=== PATIENT | male | born 1925 | race Caucasian/White ===

== ENCOUNTER 2017-06-30 16:43 | Inpatient (IN) | payer OTHER ==
--- NOTE | 2017-06-30 16:51 | PDOC ---
Rapid Medical Evaluation Time Seen by Provider: 06/30/17 16:49 Medical Evaluation: Allergies Allergy/AdvReac Type Severity Reaction Status Date / Time No Known Allergies Allergy Verified 03/04/17 10:29 06/30/17 16:49 The patient presents with a chief complaint of: stomatitis and tongue sores. for three days I have performed a brief in-person evaluation of this patient; Pertinent physical exam findings: ambulatory, in no respiratory distress I have ordered the following: The patient will proceed to the fast track for further evaluation.
--- NOTE | 2017-06-30 17:06 | PDOC ---
History of Present Illness - General Chief Complaint: Oral Ulcers Stated Complaint: SORES Time Seen by Provider: 06/30/17 16:49 Exam Limitations: Language Barrier (Granddaughter is at bedside. Refuses Zhihu ) - History of Present Illness Initial Comments: 06/30/17 17:51 Patient is an 89-year-old male with past medical history of leukemia, hypothyroidism, who presents to emergency department today for oral ulcers. His granddaughter is translating. Patient states that he has had these ulcers for the past 2 days. He states that they're very painful he has been unable to or drink anything. He states he had ulcers like these a couple months ago and was treated with a short course of steroids, however his oncologist Dr. Turcios did not want to give steroids for second time. Spoke with patient's daughter via phone who states that given this is his second round of oral ulcers and they appear different than they did 3 months ago, Dr. Turcios would like the patient to be admitted. She also states that he has had some abnormal blood counts as well as fevers over the past week. Currently denies any complaints other than mouth pain and difficulty swallowing. Past History - Travel Traveled outside of the country in the last 30 days: No Close contact w/someone who was outside of country & ill: No - Past Medical History Allergies/Adverse Reactions: Allergies Allergy/AdvReac Type Severity Reaction Status Date / Time No Known Allergies Allergy Verified 03/04/17 10:29 Home Medications: Ambulatory Orders Levothyroxine [Synthroid -] 50 mcg PO DAILY 03/04/17 Aspirin [Adult Aspirin Regimen] 81 mg PO DAILY 07/01/17 Diflucan 07/01/17 Anemia: Yes COPD: No Diabetes: Yes Disorders: Yes (BPH) Thyroid Disease: Yes (Hypothyroid) - Immunization History Immunization Up to Date: Yes - Suicide/Smoking/Psychosocial Hx Smoking History: Never smoked Have you smoked in the past 12 months: No Hx Alcohol Use: No Drug/Substance Use Hx: No Substance Use Type: None Review of Systems - Review of Systems Able to Perform ROS?: Yes Comments:: 06/30/17 17:06 CONSTITUTIONAL: Present: fevers, unable to eat d/t pain from oral ulcers. Absent: fever, chills , diaphoresis, generalized weakness, malaise, loss of appetite HEENT: Present: oral ulcers, difficulty/painful swallowing. Absent: rhinorrhea, nasal congestion, throat pain, throat swelling, difficulty swallowing, mouth swelling , ear pain, eye pain, visual Changes CARDIOVASCULAR: Absent: chest pain, loss of consciousness, palpitations, irregular heart rate, peripheral edema RESPIRATORY: Absent: cough, shortness of breath, dyspnea with exertion, orthopnea, wheezing, stridor, hemoptysis GASTROINTESTINAL: Absent: abdominal pain, abdominal distension, nausea, vomiting, diarrhea, constipation, melena, hematochezia GENITOURINARY: Absent: dysuria, frequency, urgency, hesitancy, hematuria, flank pain, genital pain MUSCULOSKELETAL: Absent: myalgia, arthralgia, joint swelling SKIN: Absent: rash, itching, pallor HEMATOLOGIC/IMMUNOLOGIC: Absent: easy bleeding, easy bruising, lymphadenopathy, frequent infections ENDOCRINE: Absent: unexplained weight gain, unexplained weight loss, heat intolerance, cold intolerance NEUROLOGIC: Absent: headache, focal weakness or paresthesias, dizziness, unsteady gait, seizure, mental status changes, bladder or bowel incontinence PSYCHIATRIC: Absent: anxiety, depression, suicidal or homicidal ideation, hallucinations. Is the patient limited Bel[place]ian proficient: No *Physical Exam - Vital Signs Last Vital Signs Temp Pulse Resp BP Pulse Ox 98.2 F 89 20 132/77 99 06/30/17 16:49 06/30/17 16:49 06/30/17 16:49 06/30/17 16:49 06/30/17 16:49 - Physical Exam Comments: 06/30/17 17:06 GENERAL: Well developed, well nourished. Awake and alert. No acute distress. HEENT: Tongue with 3 oral ulcers to dorsal tongue. 2 measure approximately the size of a dime. One in center tongue measuring 0.5cm approximately. Tongue with overall green/yellow apperance. Normocephalic, atraumatic. PERRLA, EOMI. No conjunctival pallor. Sclera are non-icteric. Moist mucous membranes. Oropharynx is clear with no lesions noted. NECK: Supple. Full ROM. No JVD. Carotid pulses 2+ and symmetric, without bruits. No thyromegaly. No lymphadenopathy. CARDIOVASCULAR: Regular rate and rhythm. No murmurs, rubs, or gallops. Distal pulses are 2+ and symmetric. PULMONARY: No evidence of respiratory distress. Lungs clear to auscultation bilaterally. No wheezing, rales or rhonchi. ABDOMINAL: Soft. Non-tender. Non-distended. No rebound or guarding. No organomegaly. Normoactive bowel sounds. MUSCULOSKELETAL Normal range of motion at all joints. No bony deformities or tenderness. No CVA tenderness. EXTREMITIES: No cyanosis. No clubbing. No edema. No calf tenderness. SKIN: Warm and dry. Normal capillary refill. No rashes. No jaundice. NEUROLOGICAL: Alert, awake, appropriate. Cranial nerves 2-12 intact. No deficits to light touch and temperature in face, upper extremities and lower extremities. No motor deficits in the in face, upper extremities and lower extremities. Normoreflexic in the upper and lower extremities. Normal speech. Toes are down- going bilaterally. Gait is normal without ataxia. PSYCHIATRIC: Cooperative. Good eye contact. Appropriate mood and affect. ED Treatment Course - LABORATORY CBC & Chemistry Diagram: 07/01/17 06:50 07/01/17 06:50 Medical Decision Making - Medical Decision Making 06/30/17 17:57 Patient is an 89-year-old male past medical history leukemia, hypothyroidism, who presents with 2 days of oral ulcers. After speaking with patient's daughter. Dr. Turcios would like to have the patient admitted for further evaluation of his ulcers as well as abnormal outpatient blood counts. Patient was currently triaged to fast track. We will endorse the patient to the main emergency department for further workup and admission. Patient is currently stable for transfer. Sign out was given 2 HOUSE REGISTRY RN Eladia Urrutia and Lluvia Umanzor , charge nurse. *DC/Admit/Observation/Transfer Diagnosis at time of Disposition: Oral ulcer, At risk for dehydration due to poor fluid intake - Referrals - Patient Instructions - Post Discharge Activity
--- NOTE | 2017-06-30 19:53 | PDOC ---
*Physical Exam - Vital Signs Last Vital Signs Temp Pulse Resp BP Pulse Ox 98.2 F 89 20 132/77 99 06/30/17 16:49 06/30/17 16:49 06/30/17 16:49 06/30/17 16:49 06/30/17 16:49 ED Treatment Course - LABORATORY CBC & Chemistry Diagram: 07/02/17 06:10 07/02/17 06:10 Medical Decision Making - Medical Decision Making 06/30/17 19:52 agree with care from DAVION Zee *DC/Admit/Observation/Transfer Diagnosis at time of Disposition: Oral ulcer, At risk for dehydration due to poor fluid intake - Referrals - Patient Instructions - Post Discharge Activity
[2017-06-30] MEDS ORDERED: SODIUM CHLORIDE 0.9% 500 ML INFUS.BAG IV ONE ×2 (19:54→23:45)
[2017-06-30 20:59] LABS: HEMATOCRIT 33.3 % (35.4-49); HEMOGLOBIN 11.1 GM/dL (11.7-16.9); MCH 32.4 pg (25.7-33.7); MCHC 33.4 g/dl (32.0-35.9); MEAN PLT VOLUME 8.8 fl (7.5-11.1); PLATELET COUNT 138 K/MM3 (134-434); RBC 3.43 M/mm3 (4.00-5.60); RDW 14.2 % (11.9-15.9); WHITE BLOOD COUNT 11.3 K/mm3 (4.0-10.0)
--- NOTE | 2017-06-30 21:16 | PDOC ---
*Physical Exam - Vital Signs Last Vital Signs Temp Pulse Resp BP Pulse Ox 98.2 F 89 20 132/77 99 06/30/17 16:49 06/30/17 16:49 06/30/17 16:49 06/30/17 16:49 06/30/17 16:49 ED Treatment Course - LABORATORY CBC & Chemistry Diagram: 06/30/17 20:33 06/30/17 20:33 - RADIOLOGY Radiology Studies Ordered: Category Date Time Status CHEST PA & LAT [RAD] Stat Radiology 06/30/17 19:54 Ordered - Medications Given in the ED: ED Medications Discontinued Medications Generic Name Dose Route Start Last Admin Trade Name Freq PRN Reason Stop Dose Admin Sodium Chloride 1,000 ml 06/30/17 19:54 06/30/17 20:50 Normal Saline - IV 06/30/17 19:55 1,000 ml ONCE ONE Administration Medical Decision Making - Medical Decision Making 06/30/17 21:00 Patient was seen in the fast track area and transfered to the main ED for further care. History was obtained from the daughter. Patient is an 89-year-old male with past medical history of leukemia, hypothyroidism, who presents to emergency department today for oral ulcers. States he was sent for admission by Dr. 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 Daughter states that he has had these ulcers for the past 2 days which are painful he has been unable to or drink anything assoc/w fever. These ulcers like lesion he has had for a couple months intermittently for which he has been on steriods but has been off steriods now for 1 month. He had a bx of these lesion in the past but while on steroids but was inconclusive. Dr. Turcios did not want to give steroids for second time but was given Nystatin and has sent him in for admission. PMD: Dr. Brooks ALL: NKDA GENERAL/CONSTITUTIONAL: [No fever or chills. No weakness. No weight change.] HEAD, EYES, EARS, NOSE AND THROAT: [No change in vision. No ear pain or discharge. No sore throat, (+) oral lesion .] CARDIOVASCULAR: [No chest pain or shortness of breath.] RESPIRATORY: [No cough, wheezing, or hemoptysis.] GASTROINTESTINAL: [No nausea, vomiting, diarrhea or constipation. No rectal bleeding.] GENITOURINARY: [No dysuria, frequency, or change in urination.] MUSCULOSKELETAL: [No joint or muscle swelling or pain. No neck or back pain.] SKIN AND BREASTS: [No rash or easy bruising.] NEUROLOGIC: [No headache, vertigo, loss of consciousness, or loss of sensation.] PSYCHIATRIC: [No depression or anxiety.] ENDOCRINE: [No increased thirst. No abnormal weight change.] HEMATOLOGIC/LYMPHATIC: [No anemia, easy bleeding, or history of blood clots.] ALLERGIC/IMMUNOLOGIC: [No hives or skin allergy. No latex allergy.] GENERAL: [The patient is awake, alert, and fully oriented, in no acute distress. ] HEAD: [Normal with no signs of trauma.] EYES: [Pupils equal, round and reactive to light, extraocular movements intact, sclera anicteric, conjunctiva clear.] ENT: [Ears normal, nares patent, oropharynx (+) ulcer on the tongue, yellow coating on the tongue, no exudates. Moist mucous membranes.] NECK: [Normal range of motion, supple without lymphadenopathy, JVD, or masses.] LUNGS: [Breath sounds equal, clear to auscultation bilaterally. No wheezes, and no crackles.] HEART: [Regular rate and rhythm, normal S1 and S2 without murmur, rub.] ABDOMEN: [Soft, nontender, normoactive bowel sounds. No guarding, no rebound. No masses.] EXTREMITIES: [Normal range of motion, no edema. No clubbing or cyanosis. No cords, erythema, or tenderness.] NEUROLOGICAL: [Cranial nerves II through XII grossly intact. Normal speech, normal gait.] PSYCH: [Normal mood, normal affect.] SKIN: (+) Warmth, Dry, normal turgor, no rashes or lesions noted, (+) edema lower ext] EKG SR rate 78, NAD, (-) ST-T wave changes A/P: Patient was seen in the fast track area and transfered to the main ED for further care. History was obtained from the daughter. Patient is an 89-year- old male with past medical history of leukemia, hypothyroidism, who presents to emergency department today for oral ulcers. called by Dr. Cole recommend admission to Dr. Richards service with hospitalist doing admission. will get sepsis labs, given fluids. 06/30/17 22:16 *DC/Admit/Observation/Transfer Diagnosis at time of Disposition: Oral ulcer, At risk for dehydration due to poor fluid intake - Discharge Dispostion Admit: Yes - Referrals Referrals: Byron Brooks MD [Primary Care Provider] - - Patient Instructions - Post Discharge Activity
[2017-06-30 22:17] LABS: MACROCYTOSIS 1+; PLATELET ESTIMATE ADEQUATE
[2017-06-30 22:55] LABS: ALBUMIN 3.5 g/dl (3.4-5.0); ALK PHOS 60 U/L (45-117); ANION GAP 10 (8-16); BILIRUBIN,TOTAL 0.8 mg/dL (0.2-1.0); BLOOD UREA NITROGEN 11 mg/dL (7-18); CALCIUM 7.7 mg/dL (8.5-10.1); CHLORIDE 107 mmol/L (98-107); CO2 23 mmol/L (21-32); CREATININE 0.9 mg/dL (0.7-1.3); GLUCOSE,RANDOM 101 mg/dL (74-106); POTASSIUM 3.7 mmol/L (3.5-5.1); SGOT/AST 19 U/L (15-37); SGPT/ALT 14 U/L (12-78); SODIUM 140 mmol/L (136-145); TOT PROT 7.4 g/dl (6.4-8.2)
[2017-07-01 01:04] LABS: URINE APPEARANCE SLCLOUDY; URINE BILIRUBIN NEGATIVE (NEGATIVE); URINE BLOOD NEGATIVE (NEGATIVE); URINE COLOR AMBER; URINE GLUCOSE (UA) NEGATIVE (NEGATIVE); URINE KETONE NEGATIVE (NEGATIVE); URINE LEUK ESTERASE NEGATIVE (NEGATIVE); URINE NITRITE NEGATIVE (NEGATIVE); URINE PROTEIN NEGATIVE (NEGATIVE); URINE UROBILINOGEN 4.0 E.U/dl mg/dL (0.2-1.0)
[2017-07-01 01:44] VITALS: BMI 25.5
--- NOTE | 2017-07-01 01:57 | HP ---
CHIEF COMPLAINT: Oral ulcers PCP: Dr. Byron Brooks HISTORY OF PRESENT ILLNESS: The patient is an 89 yo m w/ PMH myelodysplastic syndrome, DM and Hypothyroidism who was sent to the ED by Dr. Turcios for further evaluation of oral ulcers. The patient is ukranian speaking and the history was obtained by his granddaughter at bedside and his daughter by phone. Patient declined cyracom. The patient has a 2 months history of recurrent, painful oral ulcers. The ulcers are so painful that he was unable to eat or drink anything. In the past these ulcers improved after treatment with steroids. They were biopsied in the past, but resulted in nonspecific results. Per the patient's daughter, Dr. 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 Dr Turcios wishes for ENT to be consulted for possible biopsy in the AM. Patient also endorses fevers over the past 2 days correlating with the ulcers. Patient endorses odynophagia. Patient denies CP, SOB, chills, abdominal pain, diarrhea, constipation. ER course was notable for: (1) WBC 11.3, monocytes 40, myelocytes 11, metamyelocytes 3 (2) (3) Recent Travel: none PAST MEDICAL HISTORY: Anemia Diabetes BPH Hypothyroid PAST SURGICAL HISTORY: none Social History: Smoking: denies Alcohol: denies Drugs: denies Family History: non-contributory Allergies No Known Allergies Allergy (Verified 03/04/17 10:29) HOME MEDICATIONS: Home Medications Medication Instructions Recorded Levothyroxine [Synthroid -] 50 mcg PO DAILY 03/04/17 Aspirin [Adult Aspirin Regimen] 81 mg PO DAILY 07/01/17 Diflucan 07/01/17 REVIEW OF SYSTEMS CONSTITUTIONAL: Absent: chills, diaphoresis, generalized weakness, malaise, loss of appetite, weight change HEENT: Absent: rhinorrhea, nasal congestion, throat pain, throat swelling, difficulty swallowing, mouth swelling, ear pain, eye pain, visual changes CARDIOVASCULAR: Absent: chest pain, syncope, palpitations, irregular heart rate, lightheadedness , peripheral edema RESPIRATORY: Absent: cough, shortness of breath, dyspnea with exertion, orthopnea, wheezing, stridor, hemoptysis GASTROINTESTINAL: Absent: abdominal pain, abdominal distension, nausea, vomiting, diarrhea, constipation, melena, hematochezia GENITOURINARY: Absent: dysuria, frequency, urgency, hesitancy, hematuria, flank pain, genital pain MUSCULOSKELETAL: Absent: myalgia, arthralgia, joint swelling, back pain, neck pain SKIN: Absent: rash, itching, pallor HEMATOLOGIC/IMMUNOLOGIC: Absent: easy bleeding, easy bruising, lymphadenopathy, frequent infections ENDOCRINE: Absent: unexplained weight gain, unexplained weight loss, heat intolerance, cold intolerance NEUROLOGIC: Absent: headache, focal weakness or paresthesias, dizziness, unsteady gait, seizure, mental status changes, bladder or bowel incontinence PSYCHIATRIC: Absent: anxiety, depression, suicidal or homicidal ideation, hallucinations. PHYSICAL EXAMINATION Vital Signs - 24 hr 06/30/17 06/30/17 07/01/17 16:49 21:54 01:38 Temperature 98.2 F 99.0 F 97.5 F L Pulse Rate 89 82 Respiratory 20 20 Rate Blood Pressure 132/77 109/56 O2 Sat by Pulse 99 Oximetry (%) 07/01/17 01:49 Temperature Pulse Rate Respiratory Rate Blood Pressure O2 Sat by Pulse 96 Oximetry (%) GENERAL: Awake, alert, and fully oriented, in no acute distress. HEAD: Normal with no signs of trauma. EYES: Pupils equal, round and reactive to light, extraocular movements intact, sclera anicteric, conjunctiva clear. No lid lag. EARS, NOSE, THROAT: Ears normal, nares patent, oropharynx clear without exudates. Moist mucous membranes. There are 3 ulcers on the patient's tongue with a surrounding green discoloration. The discoloration scrapes off of the tongue. The ulcers themselves are tender to palpation. NECK: Normal range of motion, supple without lymphadenopathy, JVD, or masses. LUNGS: Breath sounds equal, clear to auscultation bilaterally. No wheezes, and no crackles. No accessory muscle use. HEART: Regular rate and rhythm, normal S1 and S2 without murmur, rub or gallop. ABDOMEN: Soft, nontender, not distended, normoactive bowel sounds, no guarding, no rebound, no masses. No hepatomegaly or splenomegaly. LOWER EXTREMITIES: 2+ pulses, warm, well-perfused. No calf tenderness. No peripheral edema. NEUROLOGICAL: Cranial nerves II-X intact. Normal speech. Normal gait. PSYCHIATRIC: Cooperative. Good eye contact. Appropriate mood and affect. SKIN: Warm, dry, normal turgor, no rashes or lesions noted, normal capillary refill. Laboratory Results - last 24 hr 06/30/17 06/30/17 06/30/17 20:33 20:33 20:33 WBC 11.3 H D RBC 3.43 L Hgb 11.1 L D Hct 33.3 L MCV 97.0 H MCH 32.4 MCHC 33.4 RDW 14.2 Plt Count 138 MPV 8.8 Total Counted 100 Neutrophils % No Result Required. Neutrophils % (Manual) 14.0 L D Band Neutrophils % 7.0 Lymphocytes % No Result Required. Lymphocytes % (Manual) 20.0 D Monocytes % (Manual) 40 H* Eosinophils % (Manual) 2.0 Basophils % (Manual) 1.0 Myelocytes % (Man) 11 H D Metamyelocytes 3 H D Differential Comment Man diff performed Platelet Estimate Adequate Platelet Comment Polychromasia 1+ Macrocytosis 1+ Sodium Cancelled Potassium Cancelled Chloride Cancelled Carbon Dioxide Cancelled Anion Gap Cancelled BUN Cancelled Creatinine Cancelled Creat Clearance w eGFR Cancelled Random Glucose Cancelled Lactic Acid 1.0 Calcium Cancelled Total Bilirubin Cancelled AST Cancelled ALT Cancelled Alkaline Phosphatase Cancelled Total Protein Cancelled Albumin Cancelled Urine Color Urine Appearance Urine pH Ur Specific [place] Urine Protein Urine Glucose (UA) Urine Ketones Urine Blood Urine Nitrite Urine Bilirubin Urine Urobilinogen Ur Leukocyte Esterase 06/30/17 07/01/17 21:59 00:50 WBC RBC Hgb Hct MCV MCH MCHC RDW Plt Count MPV Total Counted Neutrophils % Neutrophils % (Manual) Band Neutrophils % Lymphocytes % Lymphocytes % (Manual) Monocytes % (Manual) Eosinophils % (Manual) Basophils % (Manual) Myelocytes % (Man) Metamyelocytes Differential Comment Platelet Estimate Platelet Comment Polychromasia Macrocytosis Sodium 140 Potassium 3.7 Chloride 107 Carbon Dioxide 23 Anion Gap 10 BUN 11 Creatinine 0.9 Creat Clearance w eGFR > 60 Random Glucose 101 D Lactic Acid Calcium 7.7 L Total Bilirubin 0.8 AST 19 ALT 14 D Alkaline Phosphatase 60 Total Protein 7.4 Albumin 3.5 Urine Color Renetta Urine Appearance Slcloudy Urine pH 5.0 Ur Specific [place] 1.021 Urine Protein Negative Urine Glucose (UA) Negative Urine Ketones Negative Urine Blood Negative Urine Nitrite Negative Urine Bilirubin Negative Urine Urobilinogen 4.0 e.u/dl Ur Leukocyte Esterase Negative ASSESSMENT/PLAN: The patient is an 89 yo m w/ PMH of Hypothyroidism, myelodysplastic syndrome being admitted for further workup of oral ulcers #Recurrent oral ulcers -ENT consult for possible biposy -Heme/onc consult -NPO -rpt AM labs -fluconazole for possible thrush/ esophageal candidiasis #Diabetes -BGM ACHS -ISS ACHS #Hypothyroid -c/w current medication #FEN -no fluid indicated -lytes WNL -NPO #Prophylaxsis -SCDs #dispo -admit to med surg Visit type - Emergency Visit Emergency Visit: Yes ED Registration Date: 06/30/17 Care time: The patient presented to the Emergency Department on the above date and was hospitalized for further evaluation of their emergent condition. - New Patient This patient is new to me today: Yes Date on this admission: 07/01/17 - Critical Care Critical Care patient: No Hospitalist Screening - Colonoscopy Questionnaire Colonoscopy Questionnaire: Colonoscopy Questionnaire - Patient: 50 - 75 years old and never had a screening colonoscopy: Unknown History of colon or rectal polyps, or CA: Unknown History of IBD, Crohn's disease or UC: Unknown History of abdominal radiation therapy as a child: Unknown - Relative: 1 with colon or rectal CA, or polyps at age 60 or younger: Unknown Colon or rectal CA diagnosed at age 45 or younger: Unknown Multiple relatives with colon or rectal CA: Unknown - Outcome: Screening Result: Negative Screen
--- NOTE | 2017-07-01 03:23 | PN ---
Teaching Attending Note Name of Resident: Silas Lomeli ATTENDING PHYSICIAN STATEMENT I saw and evaluated the patient. Chart, data, imaging reviewed. I reviewed the resident's note and discussed the case with the resident. I agree with the resident's findings and plan as documented. I communicated with the patient in [place] which he and I speak fluently. SUBJECTIVE: 89 yo m w/ PMH myelodysplastic syndrome, DM and Hypothyroidism who sent to hospital by Dr. Turcios for further evaluation of recurrent oral ulcers. Patient c /o dysphagia and tongue pain and cannot swallow food properly. Was given nystatin swish and swallow with minimal improvement. 2 month history of painful oral ulcers. Previously treated with oral steroids. They were biopsied in the past, but resulted in nonspecific results. Dr. Turcios noted that patient's most recent blood work showed some "atypical cells." and there was some concern for development of leukemia. OBJECTIVE: Last Vital Signs Temp Pulse Resp BP Pulse Ox 97.5 F L 82 20 109/56 96 07/01/17 01:38 07/01/17 01:38 07/01/17 01:38 07/01/17 01:38 07/01/17 01:49 General- NAD, AAox3 HEENT- 3 ulcers on tongue, yellowish plaque on tongue which can be partially scraped off, no pharyngeal injection neck -supple, no neck masses cv -s1+S2+ systolic murmur chest - cta b/l abdomen- soft, BS, no hepatosplenomegally appreciated skin- no rashes appreciated Laboratory Results - last 24 hr 06/30/17 06/30/17 06/30/17 20:33 20:33 20:33 WBC 11.3 H D RBC 3.43 L Hgb 11.1 L D Hct 33.3 L MCV 97.0 H MCH 32.4 MCHC 33.4 RDW 14.2 Plt Count 138 MPV 8.8 Total Counted 100 Neutrophils % No Result Required. Neutrophils % (Manual) 14.0 L D Band Neutrophils % 7.0 Lymphocytes % No Result Required. Lymphocytes % (Manual) 20.0 D Monocytes % (Manual) 40 H* Eosinophils % (Manual) 2.0 Basophils % (Manual) 1.0 Myelocytes % (Man) 11 H D Metamyelocytes 3 H D Differential Comment Man diff performed Platelet Estimate Adequate Platelet Comment Polychromasia 1+ Macrocytosis 1+ Sodium Cancelled Potassium Cancelled Chloride Cancelled Carbon Dioxide Cancelled Anion Gap Cancelled BUN Cancelled Creatinine Cancelled Creat Clearance w eGFR Cancelled Random Glucose Cancelled Lactic Acid 1.0 Calcium Cancelled Total Bilirubin Cancelled AST Cancelled ALT Cancelled Alkaline Phosphatase Cancelled Total Protein Cancelled Albumin Cancelled Urine Color Urine Appearance Urine pH Ur Specific [place] Urine Protein Urine Glucose (UA) Urine Ketones Urine Blood Urine Nitrite Urine Bilirubin Urine Urobilinogen Ur Leukocyte Esterase 06/30/17 07/01/17 21:59 00:50 WBC RBC Hgb Hct MCV MCH MCHC RDW Plt Count MPV Total Counted Neutrophils % Neutrophils % (Manual) Band Neutrophils % Lymphocytes % Lymphocytes % (Manual) Monocytes % (Manual) Eosinophils % (Manual) Basophils % (Manual) Myelocytes % (Man) Metamyelocytes Differential Comment Platelet Estimate Platelet Comment Polychromasia Macrocytosis Sodium 140 Potassium 3.7 Chloride 107 Carbon Dioxide 23 Anion Gap 10 BUN 11 Creatinine 0.9 Creat Clearance w eGFR > 60 Random Glucose 101 D Lactic Acid Calcium 7.7 L Total Bilirubin 0.8 AST 19 ALT 14 D Alkaline Phosphatase 60 Total Protein 7.4 Albumin 3.5 Urine Color Renetta Urine Appearance Slcloudy Urine pH 5.0 Ur Specific [place] 1.021 Urine Protein Negative Urine Glucose (UA) Negative Urine Ketones Negative Urine Blood Negative Urine Nitrite Negative Urine Bilirubin Negative Urine Urobilinogen 4.0 e.u/dl Ur Leukocyte Esterase Negative CXR - clear lung parenchyma ASSESSMENT AND PLAN: #Recurrent tongue ulcers associated with painful tongue and dysphagia. Possible esophageal/esophageal thrush. -admit to observation -ENT consult for possible tongue ulcer biopsy -pain management -fluconazole 100mg po daily for possible thrush -EKG to check qtc -NPO except for PO meds for now #Atypical cells on blood smear -blood smear -heme/onc consult -DVT ppx- heparin sc
[2017-07-01] MEDS: LEVOTHYROXINE NA 50 MCG TABLET (FP) PO SCH (06:06)
[2017-07-01] MEDS: INSULIN SLIDING SCALE (NOVOLOG) 1 VIAL SQ SCH ×4 (06:19→21:09)
[2017-07-01 07:22] LABS: HEMOGLOBIN 10.2 GM/dL (11.7-16.9); MCH 32.7 pg (25.7-33.7); MCHC 34.1 g/dl (32.0-35.9); MEAN PLT VOLUME 8.4 fl (7.5-11.1); PLATELET COUNT 117 K/MM3 (134-434); RBC 3.12 M/mm3 (4.00-5.60); RDW 13.5 % (11.9-15.9); WHITE BLOOD COUNT 9.5 K/mm3 (4.0-10.0)
[2017-07-01 07:35] LABS: INR 1.22 (0.82-1.09); PROTHROMBIN TIME (PATIENT) 13.8 SEC (9.98-11.88)
[2017-07-01 07:38] LABS: ACTIVATED PTT 31.3 SECONDS (26.9-34.4)
[2017-07-01 07:52] LABS: ALBUMIN 3.2 g/dl (3.4-5.0); ANION GAP 9 (8-16); BLOOD UREA NITROGEN 10 mg/dL (7-18); CALCIUM 7.5 mg/dL (8.5-10.1); CHLORIDE 108 mmol/L (98-107); CO2 22 mmol/L (21-32); GLUCOSE,RANDOM 88 mg/dL (74-106); POTASSIUM 3.7 mmol/L (3.5-5.1); SODIUM 139 mmol/L (136-145)
[2017-07-01 07:55] LABS: ALK PHOS 53 U/L (45-117); BILIRUBIN,TOTAL 1.1 mg/dL (0.2-1.0); CREATININE 0.8 mg/dL (0.7-1.3); PHOSPHOROUS 2.9 mg/dL (2.5-4.9); SGOT/AST 18 U/L (15-37); SGPT/ALT 13 U/L (12-78); TOT PROT 6.9 g/dl (6.4-8.2)
--- NOTE | 2017-07-01 08:47 | EKG ---
Test Reason : Blood Pressure : / mmHG Vent. Rate : 078 BPM Atrial Rate : 078 BPM P-R Int : 188 ms QRS Dur : 074 ms QT Int : 374 ms P-R-T Axes : 062 -03 016 degrees QTc Int : 426 ms NORMAL SINUS RHYTHM NORMAL ECG NO PREVIOUS ECGS AVAILABLE Confirmed by NIYA GIL, GEETA ([id number]) on 07/01/2017 8:46:53 AM Referred By: Confirmed By:GEETA NÚÑEZ MD
[2017-07-01 09:37] LABS: PLATELET ESTIMATE DECREASED
[2017-07-01] MEDS: FLUCONAZOLE 100 MG TABLET (UD) PO SCH (09:57)
--- NOTE | 2017-07-01 14:19 | PN ---
Progress Note, Physician Chief Complaint: patient sleeping in bed admitted for oral ulcers currently NPO on iv fluids - Current Medication List Current Medications: Active Medications Fluconazole (Diflucan -) 100 mg PO DAILY [facility] Last Admin: 07/01/17 09:57 Dose: 100 mg Insulin Aspart (Novolog Vial Sliding Scale -) 1 vial SQ ACHS [facility] PRN Reason: Protocol Last Admin: 07/01/17 11:08 Dose: Not Given Levothyroxine Sodium (Synthroid -) 50 mcg PO DAILY@0700 [facility] Last Admin: 07/01/17 06:06 Dose: 50 mcg - Objective Vital Signs: Vital Signs Temperature 98.8 F 07/01/17 14:07 Pulse Rate 75 07/01/17 14:07 Respiratory Rate 20 07/01/17 14:07 Blood Pressure 104/55 07/01/17 14:07 O2 Sat by Pulse Oximetry (%) 96 07/01/17 09:00 Constitutional: Yes: Calm HENT: Yes: Other (oral ulcers noted circular with light discoloation around them near the tip of the tongue) Cardiovascular: Yes: Regular Rate and Rhythm, S1, S2 Respiratory: Yes: CTA Bilaterally Gastrointestinal: Yes: Normal Bowel Sounds, Soft Edema: No Neurological: Yes: Alert, Oriented Labs: CBC, BMP 07/01/17 06:50 07/01/17 06:50 INR, PTT INR 1.22 (0.82-1.09) H 07/01/17 06:50 Problem List - Problems (1) Oral ulcer Assessment/Plan: ent,id,heme eval dilfucan Code(s): K12.1 - OTHER FORMS OF STOMATITIS (2) At risk for dehydration due to poor fluid intake Assessment/Plan: ivf Code(s): Z91.89 - OTH PERSONAL RISK FACTORS, NOT ELSEWHERE CLASSIFIED (3) Hypothyroid Assessment/Plan: on synthroid check tsh Code(s): E03.9 - HYPOTHYROIDISM, UNSPECIFIED
--- NOTE | 2017-07-01 14:46 | CONSULT ---
Consult Consult Specialty:: Oncology Referred by:: Dr. Fuentes Reason for Consultation:: Abnormal hemogram. Oral ulcerations - History of Present Illness Chief Complaint: Inability to eat secondary to oral ulcerations - History Source History Provided By: Family Member Limitations to Obtaining History: Language Barrier - Past Medical History Gastrointestinal: Yes: Other (Recent diagnosis of hepatitis B surface antigen and hepatitis B core antibody positive ) Heme/Onc: Yes: Thrombocytopenia, Other (Recent Bone marrow compatible with Myelodysplasia) Infectious Disease: Yes: Other (Bep B suface Ag and Hep B surface Ab positive ) ENT: Yes: Other (oral ulcerations ) - Alcohol/Substance Use Hx Alcohol Use: No - Smoking History Smoking history: Never smoked Have you smoked in the past 12 months: No Home Medications - Allergies Allergies/Adverse Reactions: Allergies Allergy/AdvReac Type Severity Reaction Status Date / Time No Known Allergies Allergy Verified 03/04/17 10:29 - Home Medications Home Medications: Ambulatory Orders Levothyroxine [Synthroid -] 50 mcg PO DAILY 03/04/17 Aspirin [Adult Aspirin Regimen] 81 mg PO DAILY 07/01/17 Diflucan 07/01/17 Review of Systems - Review of Systems Constitutional: reports: Loss of Appetite, Malaise, Weakness Eyes: denies: Blurred Vision HENT: reports: Difficult Swallowing, Throat Pain. denies: Epistaxis, Nasal Congestion Neck: denies: Lumps, Stiffness, Tenderness Cardiovascular: denies: Chest Pain, Shortness of Breath Respiratory: denies: Hemoptysis, SOB on Exertion Gastrointestinal: denies: Abdominal Pain, Bloating, Constipation, Diarrhea, Melena, Nausea, Vomiting Genitourinary: denies: Burning, Dysuria, Flank Pain, Frequency, Hematuria Endocrine: reports: Other (thyroid disease) Psychiatric: reports: No Symptoms Physical Exam Vital Signs: Vital Signs Temperature 98.8 F 07/01/17 14:07 Pulse Rate 75 07/01/17 14:07 Respiratory Rate 20 07/01/17 14:07 Blood Pressure 104/55 07/01/17 14:07 O2 Sat by Pulse Oximetry (%) 96 07/01/17 09:00 Constitutional: Yes: Moderate Distress Eyes: Yes: PERRL. No: Ptosis, Sclera Icterus HENT: Yes: Normocephalic, Thrush, Other (ulcerations; coated tongue). No: Epistaxis Neck: No: Lymphadenopathy, Thyromegaly Cardiovascular: Yes: Regular Rate and Rhythm Respiratory: Yes: Regular, CTA Bilaterally Renal/: No: CVA Tenderness - Left, CVA Tenderness - Right Musculoskeletal: Yes: Back Pain, Muscle Pain Extremities: No: Calf Tenderness, Cyanosis Edema: No Integumentary: No: Erythema, Jaundice, Laceration Neurological: Yes: WNL Psychiatric: Yes: WNL Labs: CBC, BMP 07/01/17 06:50 07/01/17 06:50 Problem List - Problems (1) Oral ulcer Assessment/Plan: Patient apparently seen previously by ENT , Dr. Chester and placed on steroids . Daughter states this was related to oral ulcerations. The steroids improved the ulcers, and patient underwent biopsy which was non diagnostic. Patient seen in office on 06/29 . He was placed on diflucan, nystatin suspension and magic He had inability to eat. His tongue was coated and he had 2 discrete ulcerations. Advised ER since patient was unable to take adequate p.o. Code(s): K12.1 - OTHER FORMS OF STOMATITIS (2) Myelodysplasia (myelodysplastic syndrome) Assessment/Plan: Patient seen about 6 weeks ago for abnormal hemogram with left shift and increased monocytes. Vitamin B-12 level was low and patient given B-12 x 4 weeks. With no improvement, a Bone marrow aspirate and biopsy was performed which revealed MYELODYSPLASIA. There were some blasts in the marrow , but no evidence of leukemic transformation, and no therapy was instituted. Flow cytometry will be obtained . Code(s): D46.9 - MYELODYSPLASTIC SYNDROME, UNSPECIFIED (3) Hepatitis B Assessment/Plan: Bloods drawn on 06/29 in office revealed HIV- negative and hepatitis B surface antigen positive and Hepatitis B core antibody positive. Hepatitis C was negative. GI to follow up. Code(s): B19.10 - UNSPECIFIED VIRAL HEPATITIS B WITHOUT HEPATIC COMA
[2017-07-01] MEDS: SODIUM CHLORIDE 1,000 ML IV SCH (15:04)
--- NOTE | 2017-07-01 15:54 | CON.ID ---
Consult Consult Specialty:: infectious disease Referred by:: dr jhaveri Reason for Consultation:: tongue lesions - History of Present Illness Chief Complaint: painful tongue lesions History of Present Illness: history from [facility] (partial), dr soliz and chart 4 day history of painful mouth sores second episode, last time treated with steroids, biopsy nondiagnostic now with pain on eating no fevers no lesions elsewhere workup per Dr Soliz HIV negative hep c negative hep b sag positive, core ab positive recent diagnosis MDS - History Source History Provided By: Patient, Medical Record Limitations to Obtaining History: Language Barrier - Past Medical History Gastrointestinal: Yes: Other (Recent diagnosis of hepatitis B surface antigen and hepatitis B core antibody positive ) Infectious Disease: Yes: Other (Bep B suface Ag and Hep B surface Ab positive ) ENT: Yes: Other (oral ulcerations ) Endocrine: Yes: Hypothyroidism - Past Surgical History Additional Surgical History: prostate surgery, ?burrholes - Alcohol/Substance Use Hx Alcohol Use: No - Smoking History Smoking history: Never smoked Have you smoked in the past 12 months: No - Social History ADL: Independent Place of : Other Home Medications - Allergies Allergies/Adverse Reactions: Allergies Allergy/AdvReac Type Severity Reaction Status Date / Time No Known Allergies Allergy Verified 03/04/17 10:29 - Home Medications Home Medications: Ambulatory Orders Levothyroxine [Synthroid -] 50 mcg PO DAILY 03/04/17 Aspirin [Adult Aspirin Regimen] 81 mg PO DAILY 07/01/17 Diflucan 07/01/17 Review of Systems - Review of Systems Constitutional: reports: No Symptoms Eyes: reports: No Symptoms HENT: reports: Difficult Swallowing, Other (mouth tongue pain) Neck: reports: No Symptoms Cardiovascular: reports: No Symptoms Respiratory: reports: No Symptoms Gastrointestinal: reports: No Symptoms Genitourinary: reports: No Symptoms Musculoskeletal: reports: No Symptoms Integumentary: reports: No Symptoms Physical Exam Vital Signs: Vital Signs Temperature 98.8 F 07/01/17 14:07 Pulse Rate 75 07/01/17 14:07 Respiratory Rate 20 07/01/17 14:07 Blood Pressure 104/55 07/01/17 14:07 O2 Sat by Pulse Oximetry (%) 96 07/01/17 09:00 Constitutional: Yes: Well Nourished, No Distress, Calm Eyes: Yes: Conjunctiva Clear, EOM Intact HENT: Yes: Atraumatic, Normocephalic, Other. No: Tonsillar Exudate (two tongue ulcers, no lesions elsewhere in the mouth) Neck: Yes: Supple, Trachea Midline Cardiovascular: Yes: WNL, Regular Rate and Rhythm Respiratory: Yes: WNL, Regular, CTA Bilaterally Gastrointestinal: Yes: Normal Bowel Sounds, Soft. No: Tenderness, Epigastrium ...Rectal Exam: Yes: Deferred Musculoskeletal: Yes: WNL Extremities: Yes: WNL Edema: No Integumentary: Yes: WNL Psychiatric: Yes: Alert, Oriented Labs: CBC, BMP 07/01/17 06:50 07/01/17 06:50 Assessment/Plan tongue lesions ?infectious, ?pemphigus send RPR, viral culture (done) on diflucan, add acyclovir-PLEASE CONTINUE IV FLUIDS ent for biopsy ?need for endoscopy hep b - GI eval d/w gi and oncology
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
--- NOTE | 2017-07-01 17:22 | CON.ENT ---
Consult Consult Specialty:: otolaryngology Reason for Consultation:: tongue sores - History of Present Illness Chief Complaint: tongue pain History of Present Illness: 89M patient of my colleague's (Patrick Javid) who has been followed for his recurrent oral sores now in hospital because of painful oral sores. Dr. Hua biopsied one of his sores three months ago and it was negative. The patient has responded to steroids. He was recently diagnosed with MDS. HBV+. HCV and HIV neg. Followed by Dr. 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 Bilateral saúl hole evaluation of intracerebral hemorrhage. Right gluteal incision ? I&D. Suprapubic prostatectomy ? partial ? 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 [place]) Home Medications - Allergies Allergies/Adverse Reactions: Allergies Allergy/AdvReac Type Severity Reaction Status Date / Time No Known Allergies Allergy Verified 03/04/17 10:29 - Home Medications Home Medications: Ambulatory Orders Levothyroxine [Synthroid -] 50 mcg PO DAILY 03/04/17 Aspirin [Adult Aspirin Regimen] 81 mg PO DAILY 07/01/17 Diflucan 07/01/17 Family Disease History - Family Disease History Family Disease History: CA: Daughter (daughter age 19 of leukemia), Other: Father (killed by [employer]), Mother (liver to 82), Sister (twin sister is healthy) Physical Exam-ENT Vital Signs: Vital Signs Temperature 98.8 F 07/01/17 14:07 Pulse Rate 75 07/01/17 14:07 Respiratory Rate 20 07/01/17 14:07 Blood Pressure 104/55 07/01/17 14:07 O2 Sat by Pulse Oximetry (%) 96 07/01/17 09:00 Constitutional: Yes: Well Nourished, No Distress, Calm, Other (laying pleasantly in bed, nad. nml voice, no stridor/stertor.) Head: Yes: WNL Face: Yes: WNL Eyes: Yes: WNL Nose: Yes: WNL, Septum Deviated Oral/Pharynx: Yes: Other (edentulous, dentures removed. Three ~8mm dorsal oral tongue ulcers, superficial with erythematous borders, slightly indurated but no deep mass. No bleeding. Mild obj TTP when compressed with bimanual exam. Two of these are on left tongue, one on right tongue. Tonsils recessed. Post o/p clear. No buccal or palatal or pharyngeal ulcers. Tongue has diffuse white/ yellow coating, not scrapable, not bleeding.) Outer Ear: Yes: WNL Ear Canal: Yes: Cerumen Neck: Yes: WNL Neurological: Yes: Other (CN3,4,6,7,11,12 grossly intact, symmetrical) Problem List - Problems (1) Oral ulcer Assessment/Plan: Recurrent oral ulcerations of unclear etiology - He is followed by Dr. Hua (my partner) who biopsied him three months ago without malignancy or fungal hyphae noted. He recommended oral surgery followup for their opinion. These ulcers apparently resolve and respond well with steroid therapy. - The ulcers could be associated with his recently diagnosed myelodysplasia from bone marrow biopsy. Ongoing care with Dr. Turcios. - ID working up as well, along with GI (Hx HBV) - Consider Rheumatology - Magic mouthwash for symptomatic relief, and should rinse mouth well after meals to clear remnant debris. Dentures should also be removed at night and cleaned properly. - The coating on the tongue is nonspecific. He's not responded to antifungal medications (topical or PO) which lowers my suspicion for fungal etiology. Sometimes this is seen in older patients with xerostomia who don't clear oral secretions/food debris well. While the lesions themselves appear tender, the adjacent areas with the coating do not seem tender. Advise followup with oral surgery and/or Dr. Hua for ongoing care. Code(s): K12.1 - OTHER FORMS OF STOMATITIS
[2017-07-01] MEDS: MAG HYDROX/ALH/SMC/DPHA/LIDO 240 ML MOUTHWASH MM SCH (17:28)
[2017-07-01] MEDS: ACYCLOVIR INJECTION 400 MG in DEXTROSE 5%-WATER - 100 ML IVPB SCH (17:58)
[2017-07-01] MEDS ORDERED: PT OWN MED DRAWER 7, Y5N ONE (20:45)
[2017-07-02] MEDS: MAG HYDROX/ALH/SMC/DPHA/LIDO 240 ML MOUTHWASH MM SCH ×4 (00:07→17:04)
[2017-07-02] MEDS: ACYCLOVIR INJECTION 400 MG in DEXTROSE 5%-WATER - 100 ML IVPB SCH ×3 (02:29→17:04)
[2017-07-02] MEDS: SODIUM CHLORIDE 1,000 ML IV SCH ×4 (02:30→21:31)
[2017-07-02] MEDS: LEVOTHYROXINE NA 50 MCG TABLET (FP) PO SCH (06:23)
[2017-07-02] MEDS: INSULIN SLIDING SCALE (NOVOLOG) 1 VIAL SQ SCH ×4 (06:38→21:31)
[2017-07-02 07:47] LABS: HEMOGLOBIN 10.8 GM/dL (11.7-16.9); MCH 32.4 pg (25.7-33.7); MCHC 33.7 g/dl (32.0-35.9); MEAN CELL VOLUME 96.2 fl (80-96); MEAN PLT VOLUME 8.2 fl (7.5-11.1); PLATELET COUNT 130 K/MM3 (134-434); RBC 3.33 M/mm3 (4.00-5.60); RDW 13.6 % (11.9-15.9); WHITE BLOOD COUNT 9.3 K/mm3 (4.0-10.0)
[2017-07-02 07:53] LABS: CHLORIDE 108 mmol/L (98-107); POTASSIUM 3.8 mmol/L (3.5-5.1); SODIUM 141 mmol/L (136-145)
[2017-07-02 08:14] LABS: ALBUMIN 3.3 g/dl (3.4-5.0); ALK PHOS 52 U/L (45-117); ANION GAP 13 (8-16); BILIRUBIN,DIRECT 0.3 mg/dL (0.0-0.2); BILIRUBIN,TOTAL 0.9 mg/dL (0.2-1.0); BLOOD UREA NITROGEN 8 mg/dL (7-18); CALCIUM 7.8 mg/dL (8.5-10.1); CO2 20 mmol/L (21-32); CREATININE 0.8 mg/dL (0.7-1.3); GLUCOSE,RANDOM 90 mg/dL (74-106); LDH 282 U/L (87-241); SGOT/AST 22 U/L (15-37); SGPT/ALT 13 U/L (12-78); TOT PROT 7.4 g/dl (6.4-8.2); URIC ACID 5.2 mg/dL (2.6-7.2)
--- NOTE | 2017-07-02 10:25 | PN ---
Progress Note, Physician History of Present Illness: admitted with oral ulcers and poor oral intake - Current Medication List Current Medications: Active Medications Fluconazole (Diflucan -) 100 mg PO DAILY [facility] Last Admin: 07/01/17 09:57 Dose: 100 mg Sodium Chloride (Normal Saline -) 1,000 mls @ 83 mls/hr IV ASDIR [facility] Last Admin: 07/02/17 02:32 Dose: 83 mls/hr Acyclovir 400 mg/ Dextrose 108 mls @ 100 mls/hr IVPB Q8H-IV [facility] Last Admin: 07/02/17 02:29 Dose: 100 mls/hr Insulin Aspart (Novolog Vial Sliding Scale -) 1 vial SQ ACHS [facility] PRN Reason: Protocol Last Admin: 07/02/17 06:38 Dose: Not Given Levothyroxine Sodium (Synthroid -) 50 mcg PO DAILY@0700 [facility] Last Admin: 07/02/17 06:23 Dose: 50 mcg Lidocaine/Aluminum/Magnesium/Simeth (Magic Mouthwash *Sjr Formula* -) 5 ml MM Q6HPO [facility] Last Admin: 07/02/17 06:22 Dose: 5 ml - Objective Vital Signs: Vital Signs Temperature 98.3 F 07/02/17 10:18 Pulse Rate 85 07/02/17 10:18 Respiratory Rate 18 07/02/17 10:18 Blood Pressure 112/60 07/02/17 10:18 O2 Sat by Pulse Oximetry (%) 96 07/01/17 21:00 HENT: Yes: Other (multiple oral ulcers) Cardiovascular: Yes: S1 Respiratory: Yes: Regular, CTA Bilaterally Gastrointestinal: Yes: Normal Bowel Sounds, Soft Labs: CBC, BMP 07/02/17 06:10 07/02/17 06:10 INR, PTT INR 1.22 (0.82-1.09) H 07/01/17 06:50 Problem List - Problems (1) At risk for dehydration due to poor fluid intake Assessment/Plan: IVF TREAT ULCERS Code(s): Z91.89 - OTH PERSONAL RISK FACTORS, NOT ELSEWHERE CLASSIFIED (2) Hypothyroid Code(s): E03.9 - HYPOTHYROIDISM, UNSPECIFIED (3) Myelodysplasia (myelodysplastic syndrome) Code(s): D46.9 - MYELODYSPLASTIC SYNDROME, UNSPECIFIED (4) Oral ulcer Assessment/Plan: IVF ANTI VIRAL MEDS MAGIC MOUTH WASH ENT ON CASE--BIOPSY DONE OUTPATIENT Code(s): K12.1 - OTHER FORMS OF STOMATITIS
[2017-07-02 10:41] LABS: PLATELET ESTIMATE ADEQUATE
[2017-07-02] MEDS ORDERED: PT OWN MED DRAWER 7, Y5N ONE ×2 (10:50→16:52)
[2017-07-02] MEDS: FLUCONAZOLE 100 MG TABLET (UD) PO SCH (11:07)
--- NOTE | 2017-07-02 12:39 | PN ---
Progress Note (short form) - Note Progress Note: Progress Note: Patient seen and examined eating soft diet well still has ulcers in his tongue No complaints AFVSS Vital Signs Period Temp Pulse Resp BP Sys/Holland Pulse Ox Last 24 Hr 98.3 F-99.1 F 75-85 18-20 104-124/55-73 96 HEENT: NIESHA, EOM Intact, ulcers present in his topngue Cor: RSR, No murmurs, No gallops Lungs: Clear to P&A.scattered rhonchi Abd: Soft, Normal bowel sounds, No organomegaly Skin: No rashes, Integument intact CBC, BMP 07/02/17 06:10 07/02/17 06:10 Active Medications Generic Name Dose Route Start Last Admin Trade Name Chandanaq PRN Reason Stop Dose Admin Fluconazole 100 mg 07/01/17 10:00 07/02/17 11:07 Diflucan - PO 100 mg DAILY MANNY Administration Sodium Chloride 1,000 mls @ 83 mls/hr 07/01/17 14:30 07/02/17 02:32 Normal Saline - IV 83 mls/hr ASDIR MANNY Administration Acyclovir 400 mg/ Dextrose 108 mls @ 100 mls/hr 07/01/17 18:00 07/02/17 11:07 IVPB 100 mls/hr Q8H-IV MANNY Administration Insulin Aspart 1 vial 07/01/17 07:00 07/02/17 11:13 Novolog Vial Sliding Scale - SQ Not Given ACHS MANNY Protocol Levothyroxine Sodium 50 mcg 07/01/17 07:00 07/02/17 06:23 Synthroid - PO 50 mcg DAILY@0700 MANNY Administration Lidocaine/Aluminum/Magnesium/Simeth 5 ml 07/01/17 18:00 07/02/17 11:07 Magic Mouthwash *Sjr Formula* - MM 5 ml Q6HPO MANNY Administration Labs: reviewed A/P (1) Oral ulcer Assessment/Plan: Patient apparently seen previously by ENT , Dr. Chester and placed on steroids . Daughter states this was related to oral ulcerations. The steroids improved the ulcers, and patient underwent biopsy which was non diagnostic. slow improvement in po intake Code(s): K12.1 - OTHER FORMS OF STOMATITIS (2) Myelodysplasia (myelodysplastic syndrome) Assessment/Plan: Patient seen about 6 weeks ago for abnormal hemogram with left shift and increased monocytes. Vitamin B-12 level was low and patient given B-12 x 4 weeks. With no improvement, a Bone marrow aspirate and biopsy was performed which revealed MYELODYSPLASIA. There were some blasts in the marrow , but no evidence of leukemic transformation, and no therapy was instituted. currently we dont think this is contributing to any ulcers there are no syndromes also associated with the same Flow cytometry will be obtained . Code(s): D46.9 - MYELODYSPLASTIC SYNDROME, UNSPECIFIED (3) Hepatitis B Assessment/Plan: Bloods drawn on 06/29 in office revealed HIV- negative and hepatitis B surface antigen positive and Hepatitis B core antibody positive. Hepatitis C was negative. GI to follow up. Code(s): B19.10 - UNSPECIFIED VIRAL HEPATITIS B WITHOUT HEPATIC COMA
--- NOTE | 2017-07-02 13:49 | PN ---
Progress Note (short form) - Note Progress Note: notes reviewed feels about the same Vital Signs Period Temp Pulse Resp BP Sys/Holland Pulse Ox Last 24 Hr 98.3 F-99.1 F 75-85 18-20 104-124/55-73 96 tonue lesions about the same- not bigger cor-rrr lungs clear abd soft,nt ext no edema CBC, BMP 07/02/17 06:10 07/02/17 06:10 Microbiology 07/01/17 00:50 Urine - Urine Clean Catch Urine Culture - Final NO GROWTH OBTAINED 06/30/17 20:13 Blood - Peripheral Venous Blood Culture - Preliminary NO GROWTH OBTAINED AFTER 24 HOURS, INCUBATION TO CONTINUE FOR 4 DAYS. 06/30/17 20:33 Blood - Peripheral Venous Blood Culture - Preliminary NO GROWTH OBTAINED AFTER 24 HOURS, INCUBATION TO CONTINUE FOR 4 DAYS. a/p- tongue lesions noted- biopsy would be helpful continue empiric antivirals and IVF continue empiric diflucan MDS Hep B Sag positive
[2017-07-03] MEDS: MAG HYDROX/ALH/SMC/DPHA/LIDO 240 ML MOUTHWASH MM SCH ×5 (00:25→23:17)
[2017-07-03] MEDS: ACYCLOVIR INJECTION 400 MG in DEXTROSE 5%-WATER - 100 ML IVPB SCH ×3 (03:20→17:01)
[2017-07-03] MEDS: INSULIN SLIDING SCALE (NOVOLOG) 1 VIAL SQ SCH ×4 (06:12→21:21)
[2017-07-03] MEDS: LEVOTHYROXINE NA 50 MCG TABLET (FP) PO SCH (06:19)
[2017-07-03] MEDS: FLUCONAZOLE 100 MG TABLET (UD) PO SCH (10:29)
--- NOTE | 2017-07-03 11:52 | PN ---
Progress Note, Physician - Current Medication List Current Medications: Active Medications Fluconazole (Diflucan -) 100 mg PO DAILY [facility] Last Admin: 07/03/17 10:29 Dose: 100 mg Sodium Chloride (Normal Saline -) 1,000 mls @ 83 mls/hr IV ASDIR [facility] Last Admin: 07/02/17 21:31 Dose: 83 mls/hr Acyclovir 400 mg/ Dextrose 108 mls @ 100 mls/hr IVPB Q8H-IV [facility] Last Admin: 07/03/17 10:29 Dose: 100 mls/hr Insulin Aspart (Novolog Vial Sliding Scale -) 1 vial SQ ACHS [facility] PRN Reason: Protocol Last Admin: 07/03/17 10:34 Dose: Not Given Levothyroxine Sodium (Synthroid -) 50 mcg PO DAILY@0700 [facility] Last Admin: 07/03/17 06:19 Dose: 50 mcg Lidocaine/Aluminum/Magnesium/Simeth (Magic Mouthwash *Sjr Formula* -) 5 ml MM Q6HPO [facility] Last Admin: 07/03/17 05:52 Dose: 5 ml - Objective Vital Signs: Vital Signs Temperature 98.7 F 07/03/17 06:00 Pulse Rate 79 07/03/17 06:00 Respiratory Rate 20 07/03/17 06:00 Blood Pressure 133/71 07/03/17 06:00 O2 Sat by Pulse Oximetry (%) 95 07/02/17 20:33 HENT: Yes: Other (mouth ulcers) Cardiovascular: Yes: Regular Rate and Rhythm Respiratory: Yes: Regular, CTA Bilaterally Gastrointestinal: Yes: Normal Bowel Sounds, Soft Labs: CBC, BMP 07/02/17 06:10 07/02/17 06:10 INR, PTT INR 1.22 (0.82-1.09) H 07/01/17 06:50 Problem List - Problems (1) At risk for dehydration due to poor fluid intake Assessment/Plan: IVF TREAT ULCERS Code(s): Z91.89 - OTH PERSONAL RISK FACTORS, NOT ELSEWHERE CLASSIFIED (2) Hypothyroid Assessment/Plan: same meds Laboratory Tests 07/02/17 06:10 TSH 2.84 Code(s): E03.9 - HYPOTHYROIDISM, UNSPECIFIED (3) Myelodysplasia (myelodysplastic syndrome) Assessment/Plan: per onc Code(s): D46.9 - MYELODYSPLASTIC SYNDROME, UNSPECIFIED (4) Oral ulcer Assessment/Plan: IVF ANTI VIRAL MEDS MAGIC MOUTH WASH ENT ON CASE--BIOPSY DONE OUTPATIENT Code(s): K12.1 - OTHER FORMS OF STOMATITIS
[2017-07-03] MEDS: SODIUM CHLORIDE 1,000 ML IV SCH ×2 (14:58→15:47)
[2017-07-04 00:06] LABS: SERUM IRON SATURATION 26 % (15-55); TOTAL IRON BINDING CAPACITY 246 ug/dL (250-450); UIBC 181 ug/dL (111-343)
[2017-07-04] MEDS: ACYCLOVIR INJECTION 400 MG in DEXTROSE 5%-WATER - 100 ML IVPB SCH ×2 (02:12→09:07)
[2017-07-04] MEDS: MAG HYDROX/ALH/SMC/DPHA/LIDO 240 ML MOUTHWASH MM SCH ×4 (06:00→23:33)
[2017-07-04] MEDS: LEVOTHYROXINE NA 50 MCG TABLET (FP) PO SCH (06:00)
[2017-07-04] MEDS: INSULIN SLIDING SCALE (NOVOLOG) 1 VIAL SQ SCH (06:03)
[2017-07-04] MEDS: SODIUM CHLORIDE 1,000 ML IV SCH ×2 (06:04→19:46)
[2017-07-04] MEDS ORDERED: PT OWN MED DRAWER 7, Y5N ONE ×2 (08:55→23:17)
[2017-07-04] MEDS: FLUCONAZOLE 100 MG TABLET (UD) PO SCH (09:07)
--- NOTE | 2017-07-04 10:37 | PN ---
Progress Note, Physician Chief Complaint: on iv acyclovir and ivf still has mouth ulcers using magic mouth wash was seen by ENT ,heme and ID - Current Medication List Current Medications: Active Medications Fluconazole (Diflucan -) 100 mg PO DAILY [facility] Last Admin: 07/04/17 09:07 Dose: 100 mg Sodium Chloride (Normal Saline -) 1,000 mls @ 83 mls/hr IV ASDIR [facility] Last Admin: 07/04/17 06:04 Dose: 83 mls/hr Acyclovir 400 mg/ Dextrose 108 mls @ 100 mls/hr IVPB Q8H-IV [facility] Last Admin: 07/04/17 09:07 Dose: 100 mls/hr Levothyroxine Sodium (Synthroid -) 50 mcg PO DAILY@0700 [facility] Last Admin: 07/04/17 06:00 Dose: 50 mcg Lidocaine/Aluminum/Magnesium/Simeth (Magic Mouthwash *Sjr Formula* -) 5 ml MM Q6HPO [facility] Last Admin: 07/04/17 06:00 Dose: 5 ml - Objective Vital Signs: Vital Signs Temperature 98.3 F 07/04/17 08:51 Pulse Rate 79 07/04/17 08:51 Respiratory Rate 18 07/04/17 08:51 Blood Pressure 117/58 07/04/17 08:51 O2 Sat by Pulse Oximetry (%) 96 07/03/17 20:49 Constitutional: Yes: Calm HENT: Yes: Other (oral ulcers) Cardiovascular: Yes: Regular Rate and Rhythm, S1, S2 Respiratory: Yes: CTA Bilaterally Gastrointestinal: Yes: Normal Bowel Sounds, Soft Neurological: Yes: Alert, Oriented Labs: CBC, BMP 07/02/17 06:10 07/02/17 06:10 INR, PTT INR 1.22 (0.82-1.09) H 07/01/17 06:50 Problem List - Problems (1) Oral ulcer Assessment/Plan: ent,id,everton downing noted no plan for biopsy per ENT needs to follow up with oral surgeon as outpatient spoke to dr jain he will speak to dr long and ask him to call me regardign if the y can do another biopsy in hospital will stop diflucan will stop acyclovir will advance the diet to see if patient can swallow chopped food magic mouth wash Code(s): K12.1 - OTHER FORMS OF STOMATITIS (2) At risk for dehydration due to poor fluid intake Assessment/Plan: ivf magic mouth wash Code(s): Z91.89 - OTH PERSONAL RISK FACTORS, NOT ELSEWHERE CLASSIFIED (3) Hypothyroid Assessment/Plan: on synthroid tsh noted Code(s): E03.9 - HYPOTHYROIDISM, UNSPECIFIED Assessment/Plan Fu with Dr cross as outpatient trial of chopped diet
--- NOTE | 2017-07-04 10:44 | PN ---
Progress Note (short form) - Note Progress Note: notes reviewed feels about the same Vital Signs Period Temp Pulse Resp BP Sys/Holland Pulse Ox Last 24 Hr 98.3 F-98.8 F 72-82 18-20 117-140/58-78 96 tongue lesions unchanged cor rrr lungs clear CBC, BMP 07/02/17 06:10 07/02/17 06:10 Microbiology 06/30/17 20:13 Blood - Peripheral Venous Blood Culture - Preliminary NO GROWTH OBTAINED AFTER 72 HOURS, INCUBATION TO CONTINUE FOR 2 DAYS. 06/30/17 20:33 Blood - Peripheral Venous Blood Culture - Preliminary NO GROWTH OBTAINED AFTER 72 HOURS, INCUBATION TO CONTINUE FOR 2 DAYS. 07/01/17 00:50 Urine - Urine Clean Catch Urine Culture - Final NO GROWTH OBTAINED a/p- tongue lesions noted- biopsy would be helpful, consider rheum /derm eval, ?oral surgery to biopsy no improvement with iv acyclovir day #3, will d/c d/c diflucan- no improvement doubt thrush MDS Hep B Sag positive d/w Dr Fuentes
[2017-07-04 14:12] LABS: HEP A AB, IGM Negative (Negative); HEP B CORE AB, TOT Positive (Negative)
--- NOTE | 2017-07-04 14:25 | PATH ---
Surgical Pathology Report Patient Name: [facility]. Rec. #: [id number] /Age/Gender: 1925 (Age: 89) / M Account: [id number] Location: [address] [place] [address] Taken: 07/01/2017 Received: 07/01/2017 Reported: 07/04/2017 Physicians: Luh Regan M.D. Specimen(s) Received PERIPHERAL BLOOD Clinical History Anemia, thrombocytopenia Rule out MDS Final Diagnosis PERIPHERAL BLOOD: FLOW CYTOMETRY performed and interpreted at [facility], [place], [place] ([id number]) shows the following: INTERPRETATION: Atypical monocytosis, 28% of total events, see comment. Left-shifted granulocytes No increase of myeloblasts. There is no evidence of B or T-cell proliferative disorders. Comment: In the appropriate clinical setting, the findings raise the possibility of peripheral blood involvement by a mixed myelodysplastic/myeloproliferative process, such as chronic myelomonocytic leukemia (CMML). Correlation with relevant clinical and laboratory data is essential. Hematologic FISH Report performed and interpreted at [facility] in [place], [place] ([id number]) shows the following. INTERPRETATION: No evidence of deletion 5q or monosomy 5 is present. No evidence of deletion 7q or monosomy 7 is present. No evidence of trisomy 8 (+8) is present. No evidence of deletion 13q14 is present. No evidence of a rearrangement of 11q23. No evidence of a deletion of the p53 (17p13) locus. No evidence of deletion 20q12 is present. Comment: Recommend correlation with clinical findings and follow up as clinically indicated. Electronically Signed Contreras Dunaway M.D. Addendum Reported: 07/06/2017 Addendum Diagnosis JAK2 ([id number]) MUTATION ANALYSIS BY PCR performed and interpreted at [place], [place] ([id number]) shows the following: RESULTS: Only the wild-type JAK2 sequence was detected. INTERPRETATION: Negative for JAK2 (V617F) Mutation. See [facility] report ([id number]) for additional details. Latonya Bucio M.D. Gross Description Received labelled with the patient's name are 2 green top tubes of peripheral blood which are forwarded to [facility] for ancillary testing. [facility]/07/01/2017 [facility]/07/01/2017
--- NOTE | 2017-07-04 14:57 | PN ---
GI Progress Note Subjective: For Dr. Timmons: No acute events No abdominal pain - Objective Vital Signs: Vital Signs Temperature 98.7 F 07/04/17 14:18 Pulse Rate 76 07/04/17 14:18 Respiratory Rate 18 07/04/17 09:00 Blood Pressure 132/65 07/04/17 14:18 O2 Sat by Pulse Oximetry (%) 96 07/04/17 09:00 Constitutional: Calm Eyes: No: Sclera Icterus HENT: Yes: Other (superficial ulcerations on tongue) Cardiovascular: Yes: Regular Rate and Rhythm Respiratory: Yes: CTA Bilaterally Gastrointestinal Inspection: No: Distention ...Auscultate: Yes: Normoactive Bowel Sounds ...Palpate: No: Hepatomegaly, Splenomegaly, Tenderness ...Percussion: No: Tympanitic Edema: Yes Edema: LLE: Trace, RLE: Trace Neurological: Yes: Alert Labs: CBC, BMP 07/02/17 06:10 07/02/17 06:10 INR, PTT INR 1.22 (0.82-1.09) H 07/01/17 06:50 Laboratory Tests 07/02/17 06:10 Hep A IgM Ab Confirm Negative Hepatitis A Ab Total Positive H Hep Bs Antigen Positive H Hep Bs Antibody Non reactive Hep B Core Total Ab Positive H Hep B DNA copies/mL Pending Hep B DNA (Units/mL) Pending Hepatitis Be Antibody Pending Hepatitis Be Antigen Pending Hep C Ab Diagnostic 0.1 Problem List - Problems (1) Hepatitis B Assessment/Plan: Suspect chronic active hepatitis B by serologies Awaiting viral load Check Hep B core IgM If no chemotherapy to be initiated would wait for viral load to determine if therapy would be initiated If chemo to be started would start antiviral therapy ie entecavir 0.5mg once daily Needs Q 6month US to screen for HCC. No mass seen on current CT scan but it was single phase Code(s): B19.10 - UNSPECIFIED VIRAL HEPATITIS B WITHOUT HEPATIC COMA
[2017-07-04 16:25] LABS: TRANSGLUTAMINASE IGA < 2 U/mL (0-3); TRANSGLUTAMINASE IGG 3 U/mL (0-5)
--- NOTE | 2017-07-04 20:45 | PN ---
Progress Note, Physician History of Present Illness: 89M patient of my colleague's (Patrick Hua) who has been followed for his recurrent oral sores now in hospital because of painful oral sores. Dr. Hua biopsied one of his sores two months ago and it was negative. The patient has responded to steroids. He was recently diagnosed with MDS. HBV+. HCV and HIV neg. Followed by Dr. Turcios (Onc) Daughter is requesting a repeat biopsy - Current Medication List Current Medications: Active Medications Sodium Chloride (Normal Saline -) 1,000 mls @ 83 mls/hr IV ASDIR [facility] Last Admin: 07/04/17 19:46 Dose: 83 mls/hr Levothyroxine Sodium (Synthroid -) 50 mcg PO DAILY@0700 [facility] Last Admin: 07/04/17 06:00 Dose: 50 mcg Lidocaine/Aluminum/Magnesium/Simeth (Magic Mouthwash *Sjr Formula* -) 5 ml MM Q6HPO [facility] Last Admin: 07/04/17 17:58 Dose: 5 ml - Objective Vital Signs: Vital Signs Temperature 98.7 F 07/04/17 14:18 Pulse Rate 76 07/04/17 14:18 Respiratory Rate 18 07/04/17 09:00 Blood Pressure 132/65 07/04/17 14:18 O2 Sat by Pulse Oximetry (%) 96 07/04/17 09:00 Constitutional: Yes: Well Nourished, No Distress, Calm, Other (ambulating freely. doesn't speak bruneian) HENT: Yes: Other (improvement in his oral tongue ulcers. They are softer and less delineated, slightly smaller.) Labs: CBC, BMP 07/02/17 06:10 07/02/17 06:10 INR, PTT INR 1.22 (0.82-1.09) H 07/01/17 06:50 Problem List - Problems (1) Oral ulcer Assessment/Plan: Recurrent oral ulcerations of unclear etiology - improving - He is followed by Dr. Hua (my partner) who biopsied him two months ago without malignancy or fungal hyphae noted. He recommended oral surgery followup for their opinion. These ulcers apparently resolve and respond well with steroid therapy. - The ulcers could be associated with his recently diagnosed myelodysplasia from bone marrow biopsy if affecting his immunity. Ongoing care with Dr. Turcios. Alternatively given HBV+ could be an associated polyarteritis nodosa. ? Pemphigoid. - ID working up as well, along with GI (Hx HBV) - Consider Rheumatology - Magic mouthwash for symptomatic relief, and should rinse mouth well after meals to clear remnant debris. Dentures should also be removed at night and cleaned properly. - Will do a second biopsy tomorrow morning, weather permitting at primary team and daughter's request. 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 All questions answered and consent signed with [facility] RN as witness. Discussed with Dr. Dunaway of pathology to include immunofluorescence staining. Code(s): K12.1 - OTHER FORMS OF STOMATITIS
[2017-07-05] MEDS: LEVOTHYROXINE NA 50 MCG TABLET (FP) PO SCH (06:02)
[2017-07-05] MEDS: MAG HYDROX/ALH/SMC/DPHA/LIDO 240 ML MOUTHWASH MM SCH ×3 (06:02→17:23)
[2017-07-05] MEDS: SODIUM CHLORIDE 1,000 ML IV SCH ×2 (08:00→20:51)
--- NOTE | 2017-07-05 11:05 | PN ---
Progress Note, Physician Chief Complaint: s/p oral ulcer biopsy today patient should get sensation in his tongue in a few hours - Current Medication List Current Medications: Active Medications Sodium Chloride (Normal Saline -) 1,000 mls @ 83 mls/hr IV ASDIR [facility] Last Admin: 07/04/17 19:46 Dose: 83 mls/hr Levothyroxine Sodium (Synthroid -) 50 mcg PO DAILY@0700 [facility] Last Admin: 07/05/17 06:02 Dose: 50 mcg Lidocaine/Aluminum/Magnesium/Simeth (Magic Mouthwash *Sjr Formula* -) 5 ml MM Q6HPO [facility] Last Admin: 07/05/17 06:02 Dose: 5 ml - Objective Vital Signs: Vital Signs Temperature 98.9 F 07/05/17 05:39 Pulse Rate 78 07/05/17 05:39 Respiratory Rate 20 07/05/17 05:39 Blood Pressure 133/69 07/05/17 05:39 O2 Sat by Pulse Oximetry (%) 96 07/04/17 22:00 Constitutional: Yes: Calm HENT: Yes: Other (buish discoloration on the tongue at the site of biopsy) Cardiovascular: Yes: Regular Rate and Rhythm, S1, S2 Respiratory: Yes: CTA Bilaterally Gastrointestinal: Yes: Normal Bowel Sounds, Soft Edema: No Neurological: Yes: Alert, Oriented Labs: CBC, BMP 07/02/17 06:10 07/02/17 06:10 INR, PTT INR 1.22 (0.82-1.09) H 07/01/17 06:50 Problem List - Problems (1) Oral ulcer Assessment/Plan: s/p oral ulcer biopsy today by ENT awaiting for patient to regain sensation in that area then will feed him food and then DC home later today and to follow up with dr cross as outpatient for biopsy results Code(s): K12.1 - OTHER FORMS OF STOMATITIS (2) At risk for dehydration due to poor fluid intake Assessment/Plan: labs improved s.p oral ulcer biopsy Code(s): Z91.89 - OTH PERSONAL RISK FACTORS, NOT ELSEWHERE CLASSIFIED (3) Hypothyroid Assessment/Plan: on synthroid tsh noted Code(s): E03.9 - HYPOTHYROIDISM, UNSPECIFIED (4) Hepatitis B Assessment/Plan: needs ultrasound of liver every 6 months to screen for HCC awaiting viral load and hep B core igM follow up with GI regarding treatment of chemotherapy ct scan did not show any tatyana Code(s): B19.10 - UNSPECIFIED VIRAL HEPATITIS B WITHOUT HEPATIC COMA
[2017-07-05] MEDS ORDERED: PT OWN MED DRAWER 7, Y5N ONE (11:52)
--- NOTE | 2017-07-05 13:07 | PN ---
Progress Note (short form) - Note Progress Note: tongue ulcer biopsied today Vital Signs Period Temp Pulse Resp BP Sys/Holland Pulse Ox Last 24 Hr 98.3 F-98.9 F 73-78 18-20 130-133/65-72 96 cor-rrr tongue ulcer right is smaller, left is s/p biopsy cor-rrr lungs clear CBC, BMP 07/02/17 06:10 07/02/17 06:10 viral culture pending biopsy pending a/p- tongue lesions noted- s/p biopsy today possibly has some improvement ?flora mccray, ?acyclovir- will switch to po valtrex 1 g po bid for 7 days d/c diflucan- no improvement doubt thrush MDS Hep B Sag positive-f/u viral load
--- NOTE | 2017-07-05 13:09 | PN ---
GI Progress Note - Objective Vital Signs: Vital Signs Temperature 98.9 F 07/05/17 05:39 Pulse Rate 78 07/05/17 05:39 Respiratory Rate 20 07/05/17 05:39 Blood Pressure 133/69 07/05/17 05:39 O2 Sat by Pulse Oximetry (%) 96 07/04/17 22:00 Labs: CBC, BMP 07/02/17 06:10 07/02/17 06:10 INR, PTT INR 1.22 (0.82-1.09) H 07/01/17 06:50 Problem List - Problems (1) Hepatitis B Code(s): B19.10 - UNSPECIFIED VIRAL HEPATITIS B WITHOUT HEPATIC COMA (2) Sore throat Code(s): J02.9 - ACUTE PHARYNGITIS, UNSPECIFIED (3) History of appendectomy Code(s): Z98.890 - OTHER SPECIFIED POSTPROCEDURAL STATES; Z90.49 - ACQUIRED ABSENCE OF OTHER SPECIFIED PARTS OF DIGESTIVE TRACT (4) BPH (benign prostatic hyperplasia) Code(s): N40.0 - BENIGN PROSTATIC HYPERPLASIA WITHOUT LOWER URINRY TRACT SYMP (5) History of prostatectomy Code(s): Z98.890 - OTHER SPECIFIED POSTPROCEDURAL STATES; Z90.79 - ACQUIRED ABSENCE OF OTHER GENITAL ORGAN(S) (6) H/O hemorrhoidectomy Code(s): Z98.890 - OTHER SPECIFIED POSTPROCEDURAL STATES (7) Intracerebral bleed due to trauma Code(s): S06.369A - TRAUM HEMOR CEREB, W LOC OF UNSP DURATION, INIT (8) Family history of leukemia Code(s): Z80.6 - FAMILY HISTORY OF LEUKEMIA (9) Weight loss Code(s): R63.4 - ABNORMAL WEIGHT LOSS
--- NOTE | 2017-07-05 13:14 | PN ---
Progress Note (short form) - Note Progress Note: Patient seen and examined. discussed with daughter Teressa , a PhysicianAssistant, over the phone. s/p biopsy of the oral lesion this am by ENT. O/E: HEENT: NIESHA, EOM Intact, ulcers present in his tongue, improved. Cor: RSR, No murmurs, No gallops Lungs: Clear to P&A.scattered rhonchi Abd: Soft, Normal bowel sounds, No organomegaly Skin: No rashes, Integument intact Last Vital Signs Temp Pulse Resp BP Pulse Ox 98.9 F 78 20 133/69 96 07/05/17 05:39 07/05/17 05:39 07/05/17 05:39 07/05/17 05:39 07/04/17 22:00 CBC, BMP 07/02/17 06:10 07/02/17 06:10 Current Medications Generic Name Dose Route Start Last Admin Trade Name Freq PRN Reason Stop Dose Admin Sodium Chloride 1,000 mls @ 83 mls/hr 07/01/17 14:30 07/04/17 19:46 Normal Saline - IV 83 mls/hr ASDIR MANNY Administration Levothyroxine Sodium 50 mcg 07/01/17 07:00 07/05/17 06:02 Synthroid - PO 50 mcg DAILY@0700 MANNY Administration Lidocaine/Aluminum/Magnesium/Simeth 5 ml 07/01/17 18:00 07/05/17 06:02 Magic Mouthwash *Sjr Formula* - MM 5 ml Q6HPO MANNY Administration Valacyclovir HCl 1,000 mg 07/05/17 13:30 Valtrex - PO BID MANNY flow results noted will c.w treatment per ID will f/u on GI studies pain control I have discussed with the daughter about the potential discharge on valtrex for one week per ID. She requests his services needs to re-instated and would like to be ensured of that prior to his d/c ,likely d.c could be for tomorrow if pain is controlled and he assures PO intake. Updated RN/payroll manager about the discussion with the daughter Daughter aware that she needs follow with us in the office
--- NOTE | 2017-07-05 13:39 | PN ---
GI Progress Note Subjective: GI NOte: Rhys reports sharp pain at the tongue biopsy site as his topical anesthetic wears off. His ulcwer ulcer pain had been resolving gradually. Not clear whether this was the Magic mouthwash or acyclovir effect. I discussed the case with Dr. Brown who will continue the acyclovir. - Objective Vital Signs: Vital Signs Temperature 98.9 F 07/05/17 05:39 Pulse Rate 78 07/05/17 05:39 Respiratory Rate 20 07/05/17 05:39 Blood Pressure 133/69 07/05/17 05:39 O2 Sat by Pulse Oximetry (%) 96 07/04/17 22:00 Laboratory Tests 07/01/17 07/02/17 06:50 06:10 PT with INR 13.80 H INR 1.22 H Hep A IgM Ab Confirm Negative Hepatitis A Ab Total Positive H Hep Bs Antigen Positive H Hep Bs Antibody Non reactive Hep B Core Total Ab Positive H Hep B DNA copies/mL Pending Hepatitis Be Antibody Positive H Laboratory Tests 07/02/17 06:10 Tumor Marker AFP 1.5 Constitutional: Mild Distress ...Auscultate: Yes: Normoactive Bowel Sounds ...Palpate: Yes: Soft, Tenderness, Epigastium, Other (nontender umbilical hernia ) Labs: CBC, BMP 07/02/17 06:10 07/02/17 06:10 INR, PTT INR 1.22 (0.82-1.09) H 07/01/17 06:50 Assessment/Plan Hepatitis B replication PCR pending CT Scan reveals no malignancy. Await tongue biopsy Problem List - Problems (1) Hepatitis B Assessment/Plan: Rhys does have the HBe antibody. Await PCR for viral replication. AFP is normal and CT reveals no signs of cirrhosis, hepatoma, lymphadenopathy or any evident for an occult malignancy. Code(s): B19.10 - UNSPECIFIED VIRAL HEPATITIS B WITHOUT HEPATIC COMA (2) Sore throat Code(s): J02.9 - ACUTE PHARYNGITIS, UNSPECIFIED (3) History of appendectomy Code(s): Z98.890 - OTHER SPECIFIED POSTPROCEDURAL STATES; Z90.49 - ACQUIRED ABSENCE OF OTHER SPECIFIED PARTS OF DIGESTIVE TRACT (4) BPH (benign prostatic hyperplasia) Code(s): N40.0 - BENIGN PROSTATIC HYPERPLASIA WITHOUT LOWER URINRY TRACT SYMP (5) History of prostatectomy Code(s): Z98.890 - OTHER SPECIFIED POSTPROCEDURAL STATES; Z90.79 - ACQUIRED ABSENCE OF OTHER GENITAL ORGAN(S) (6) H/O hemorrhoidectomy Code(s): Z98.890 - OTHER SPECIFIED POSTPROCEDURAL STATES (7) Intracerebral bleed due to trauma Code(s): S06.369A - TRAUM HEMOR CEREB, W LOC OF UNSP DURATION, INIT (8) Family history of leukemia Code(s): Z80.6 - FAMILY HISTORY OF LEUKEMIA (9) Weight loss Code(s): R63.4 - ABNORMAL WEIGHT LOSS
[2017-07-05] MEDS ORDERED: oxyCODONE HCL 5 MG TABLET PO PRN (13:46)
[2017-07-05] MEDS ORDERED: ACETAMINOPHEN 325 MG TABLET (FP) PO PRN ×2 (13:47→20:09)
--- NOTE | 2017-07-05 14:03 | PN ---
Progress Note (short form) - Note Progress Note: Otolaryngology Consent obtained last night over phone by daughter. Daughter present today for biopsy. Date of Biopsy: 07/05/17 Surgeon: Dr. Jose Francisco Jimenez Anesthesiologist: None Preoperative Diagnosis: Recurrent Oral Ulcers Postoperative Diagnosis: Same Procedure Peformed; Tongue Biopsy Indic: 89M with recurrent oral ulcers that resolve and recur. Previous biopsy negative, asked to repeat again. Disc r/b/l/a with patient (using daughter to translate per his wish) as noted in yesterday's note. Again I emphasized that there will be more tongue pain after this biopsy and the possibility of another nondiagnostic sample. I also clarified with his daughter that the previous biopsy was full thickness. They wish to proceed. Findings: 3 tongue ulcers as prev noted. Biopsy taken at margin of anterior left ulcer including portion of diseased and healthy tissue. Procedure in Detail: Patient prepped and draped in standard procedure. Time out was called with bedside checklist by nursing platform material handling supervisor. After 2 cc lidocaine 1%, epi 1:100,000 infiltrated, two biopsies were taken with 3mm punch biopsy down to the hub of the biopsy instrument, removed with sterile sharp scissors taking care to avoid crush damage. These were taken to include segment of ulcerated and healthy tissue. Minimal bleeding after controlled with silver nitrate. No suture felt necessary as holes mostly closed with tongue elasticity.Tolerated well. Advised daughter to contact me for results in 1-2 weeks. She will call my office. She understands that I must speak to her about the results even if they are normal. Specimens sent on saline-soaked gauze as per Dr. Cortez's recommendation (I spoke to him yesterday). Advised RN that it must be delivered promptly as not fixated in formalin. Called pathology and left vm indicating it should have been received (they did not answer). Problem List - Problems (1) Oral ulcer Code(s): K12.1 - OTHER FORMS OF STOMATITIS
[2017-07-05] MEDS: valACYclovir HCL 500 MG TABLET (FP) PO SCH ×2 (14:08→22:05)
[2017-07-05 14:34] LABS: HBSAG SCREEN Positive (Negative)
[2017-07-05] MEDS ORDERED: valACYclovir HCL 1000 MG TABLET PO SCH (22:00)
[2017-07-05] MEDS: oxyCODONE HCL 5 MG TABLET PO PRN (22:05)
[2017-07-05] MEDS: ACETAMINOPHEN 325 MG TABLET (FP) PO PRN (22:06)
[2017-07-06] MEDS: MAG HYDROX/ALH/SMC/DPHA/LIDO 240 ML MOUTHWASH MM SCH ×4 (00:50→17:28)
[2017-07-06] MEDS: ACETAMINOPHEN 325 MG TABLET (FP) PO PRN (06:04)
[2017-07-06] MEDS: LEVOTHYROXINE NA 50 MCG TABLET (FP) PO SCH (06:04)
[2017-07-06] MEDS: oxyCODONE HCL 5 MG TABLET PO PRN (06:04)
[2017-07-06] MEDS ORDERED: PT OWN MED DRAWER 7, Y5N ONE (09:53)
[2017-07-06] MEDS: valACYclovir HCL 500 MG TABLET (FP) PO SCH ×2 (09:55→21:23)
[2017-07-06] MEDS: SODIUM CHLORIDE 1,000 ML IV SCH ×2 (09:56→17:27)
--- NOTE | 2017-07-06 11:44 | DS ---
Physical Examination Vital Signs: Vital Signs Temperature 98.4 F 07/06/17 09:00 Pulse Rate 74 07/06/17 09:00 Respiratory Rate 18 07/06/17 09:00 Blood Pressure 108/57 07/06/17 09:00 O2 Sat by Pulse Oximetry (%) 95 07/06/17 09:00 Constitutional: Yes: Well Nourished, No Distress, Calm Cardiovascular: Yes: Regular Rate and Rhythm Respiratory: Yes: Regular Gastrointestinal: Yes: Normal Bowel Sounds, Soft Musculoskeletal: Yes: WNL Extremities: Yes: WNL Edema: No Peripheral Pulses WNL: Yes Neurological: Yes: Alert Psychiatric: Yes: Alert Labs: CBC, BMP 07/02/17 06:10 07/02/17 06:10 Discharge Summary Reason For Visit: AT RISK FOR DEHYDRATION DUE TO POOR FLUID INTAKE Current Active Problems At risk for dehydration due to poor fluid intake (Acute) BPH (benign prostatic hyperplasia) (Acute) Family history of leukemia (Acute) H/O hemorrhoidectomy (Acute) Hepatitis B (Acute) History of appendectomy (Acute) History of prostatectomy (Acute) Hypothyroid (Acute) Intracerebral bleed due to trauma (Acute) Myelodysplasia (myelodysplastic syndrome) (Acute) Oral ulcer (Acute) Sore throat (Acute) Weight loss (Acute) Hospital Course: The patient is an 89 yo m w/ PMH myelodysplastic syndrome, DM and Hypothyroidism who was sent to the ED by Dr. Turcios for further evaluation of oral ulcers. The patient is ukranian speaking and the history was obtained by his granddaughter at bedside and his daughter by phone. Patient declined cyracom. The patient has a 2 months history of recurrent, painful oral ulcers. The ulcers are so painful that he was unable to eat or drink anything. In the past these ulcers improved after treatment with steroids. They were biopsied in the past, but resulted in nonspecific results. Per the patient's daughter, Dr. 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 Dr Turcios wishes for ENT to be consulted for possible biopsy in the AM. Patient also endorses fevers over the past 2 days correlating with the ulcers. Patient endorses odynophagia. Patient denies CP, SOB, chills, abdominal pain, diarrhea, constipation. Condition: Stable - Instructions Diet, Activity, Other Instructions: follow up with Dr timmons regarding starting treatment for hepatitis B needs liver ultrasound in december 2017 and then twice a year ( every 6 months ) follow up with Dr Hua (ENT) regarding the oral ulcer biopsy result Follow up with Ad Arellano for your biopsy results Referrals: Patrick Hua MD [Non Staff, Medical] - Oleg Timmons MD [Staff Physician] - Byron Brooks MD [Primary Care Provider] - Ad Turcios MD [Staff Physician] - Disposition: HOME - Home Medications Comprehensive Discharge Medication List: Ambulatory Orders Levothyroxine [Synthroid -] 50 mcg PO DAILY 03/04/17 Aspirin [Adult Aspirin Regimen] 81 mg PO DAILY 07/01/17 Diflucan 07/01/17
[2017-07-06] MEDS ORDERED: oxyCODONE HCL 5 MG TABLET PO PRN (12:16)
--- NOTE | 2017-07-06 12:21 | PN ---
GI Progress Note Subjective: GI NOte: Tongue is controlled with oxycodone and he has been tolerating chopped diet. Has developed a nonpainful right eye subconjunctival hematoma. Have discussed advancing to a soft diet and decreasing oxycodone dosage. He has low grade replication of HBV. Given these counts and absence of elevated transaminases will reserve therapy for suppression should he need chemotherapy for MDS conversion to leukemia in the future or of biopsies reveal polyarteritis nodosa. - Objective Vital Signs: Vital Signs Temperature 98.4 F 07/06/17 09:00 Pulse Rate 74 07/06/17 09:00 Respiratory Rate 18 07/06/17 09:00 Blood Pressure 108/57 07/06/17 09:00 O2 Sat by Pulse Oximetry (%) 95 07/06/17 09:00 Laboratory Tests 07/02/17 06:10 Tumor Marker AFP 1.5 Hep B DNA (Units/mL) 40 Hepatitis Be Antibody Positive H Constitutional: No Distress, Other (right eye conjunctival hematoma tongue ulcers healing) ...Auscultate: Yes: Normoactive Bowel Sounds ...Palpate: Yes: Soft, Other (nontender) Labs: CBC, BMP 07/02/17 06:10 07/02/17 06:10 INR, PTT INR 1.22 (0.82-1.09) H 07/01/17 06:50 Assessment/Plan Oral ulcers healing. Needs to show that he can tolerate the type of diet he can have at home so have advanced to a soft diet. Would observe until tomorrow to assure that he eats adequately and with decreased analgesia. Problem List - Problems (1) Oral ulcer Assessment/Plan: Appear to be healing without steroids this time. No clear what role acyclovir is playing as viral cultures and biopsy still pending. Code(s): K12.1 - OTHER FORMS OF STOMATITIS (2) Hepatitis B Assessment/Plan: Has low replication counts. See above discussion. AFP is normal. Code(s): B19.10 - UNSPECIFIED VIRAL HEPATITIS B WITHOUT HEPATIC COMA (3) Sore throat Code(s): J02.9 - ACUTE PHARYNGITIS, UNSPECIFIED (4) History of appendectomy Code(s): Z98.890 - OTHER SPECIFIED POSTPROCEDURAL STATES; Z90.49 - ACQUIRED ABSENCE OF OTHER SPECIFIED PARTS OF DIGESTIVE TRACT (5) BPH (benign prostatic hyperplasia) Code(s): N40.0 - BENIGN PROSTATIC HYPERPLASIA WITHOUT LOWER URINRY TRACT SYMP (6) History of prostatectomy Code(s): Z98.890 - OTHER SPECIFIED POSTPROCEDURAL STATES; Z90.79 - ACQUIRED ABSENCE OF OTHER GENITAL ORGAN(S) (7) H/O hemorrhoidectomy Code(s): Z98.890 - OTHER SPECIFIED POSTPROCEDURAL STATES (8) Intracerebral bleed due to trauma Code(s): S06.369A - TRAUM HEMOR CEREB, W LOC OF UNSP DURATION, INIT (9) Family history of leukemia Code(s): Z80.6 - FAMILY HISTORY OF LEUKEMIA (10) Weight loss Code(s): R63.4 - ABNORMAL WEIGHT LOSS
--- NOTE | 2017-07-06 17:08 | PN ---
Progress Note (short form) - Note Progress Note: Patient seen and examined. O/E: HEENT: NIESHA, EOM Intact, ulcers present in his tongue, much improved today Cor: RSR, No murmurs, No gallops Lungs: Clear to P&A.scattered rhonchi Abd: Soft, Normal bowel sounds, No organomegaly Skin: No rashes, Integument intact Last Vital Signs Temp Pulse Resp BP Pulse Ox 98.4 F 72 18 113/63 95 07/06/17 14:32 07/06/17 14:32 07/06/17 09:00 07/06/17 14:32 07/06/17 09:00 CBC, BMP 07/02/17 06:10 07/02/17 06:10 Current Medications Generic Name Dose Route Start Last Admin Trade Name Freq PRN Reason Stop Dose Admin Acetaminophen 650 mg 07/05/17 20:10 07/06/17 06:04 Tylenol - PO 650 mg Q4H PRN Administration PAIN LEVEL 6-10 Sodium Chloride 1,000 mls @ 83 mls/hr 07/01/17 14:30 07/06/17 09:56 Normal Saline - IV 83 mls/hr ASDIR MANNY Administration Levothyroxine Sodium 50 mcg 07/01/17 07:00 07/06/17 06:04 Synthroid - PO 50 mcg DAILY@0700 MANNY Administration Lidocaine/Aluminum/Magnesium/Simeth 5 ml 07/01/17 18:00 07/06/17 11:58 Magic Mouthwash *Sjr Formula* - MM 5 ml Q6HPO MANNY Administration Oxycodone HCl 5 mg 07/06/17 12:16 Roxicodone - PO Q4H PRN PAIN LEVEL 6-10 Valacyclovir HCl 1,000 mg 07/05/17 13:30 07/06/17 09:55 Valtrex - PO 1,000 mg BID MANNY Administration sub-conj hemorrhage: monitor GI eval appreciated oral ulcer biopsy results pending flow results reviewed f/u in office to be discharged in the am
[2017-07-07] MEDS: MAG HYDROX/ALH/SMC/DPHA/LIDO 240 ML MOUTHWASH MM SCH ×4 (00:01→17:26)
[2017-07-07] MEDS: LEVOTHYROXINE NA 50 MCG TABLET (FP) PO SCH (06:04)
[2017-07-07] MEDS ORDERED: PT OWN MED DRAWER 7, Y5N ONE ×2 (09:09→19:44)
[2017-07-07] MEDS: valACYclovir HCL 500 MG TABLET (FP) PO SCH (09:13)
--- NOTE | 2017-07-07 10:39 | PN ---
Progress Note, Physician Chief Complaint: MDS,oral ulceration History of Present Illness: NAD, sitting at the edge of the bed tolerating PO intake, soft diet on magic mouthwash Biopsy results pending D/C today - Current Medication List Current Medications: Active Medications Acetaminophen (Tylenol -) 650 mg PO Q4H PRN PRN Reason: PAIN LEVEL 6-10 Last Admin: 07/06/17 06:04 Dose: 650 mg Levothyroxine Sodium (Synthroid -) 50 mcg PO DAILY@0700 [facility] Last Admin: 07/07/17 06:04 Dose: 50 mcg Lidocaine/Aluminum/Magnesium/Simeth (Magic Mouthwash *Sjr Formula* -) 5 ml MM Q6HPO [facility] Last Admin: 07/07/17 06:04 Dose: 5 ml Oxycodone HCl (Roxicodone -) 5 mg PO Q4H PRN PRN Reason: PAIN LEVEL 6-10 Valacyclovir HCl (Valtrex -) 1,000 mg PO BID [facility] Last Admin: 07/07/17 09:13 Dose: 1,000 mg - Objective Vital Signs: Vital Signs Temperature 99.0 F 07/07/17 05:40 Pulse Rate 74 07/07/17 05:40 Respiratory Rate 21 07/07/17 05:40 Blood Pressure 127/70 07/07/17 05:40 O2 Sat by Pulse Oximetry (%) 96 07/06/17 20:37 Constitutional: Yes: Well Nourished, No Distress, Calm HENT: Yes: Other (leukoplakia,glossitis) Cardiovascular: Yes: Regular Rate and Rhythm Respiratory: Yes: Regular Gastrointestinal: Yes: Normal Bowel Sounds, Soft Musculoskeletal: Yes: WNL Extremities: Yes: WNL Edema: No Peripheral Pulses WNL: Yes Neurological: Yes: Alert, Oriented Psychiatric: Yes: Alert, Oriented Labs: CBC, BMP 07/02/17 06:10 07/02/17 06:10 INR, PTT INR 1.22 (0.82-1.09) H 07/01/17 06:50 Problem List - Problems (1) Oral ulcer Assessment/Plan: -Biopsy results pending -follow up with hematology outpatient -magic mouthwash -oxycodone for severe pain -soft diet -d/c on valacyclovir Code(s): K12.1 - OTHER FORMS OF STOMATITIS (2) Myelodysplasia (myelodysplastic syndrome) Code(s): D46.9 - MYELODYSPLASTIC SYNDROME, UNSPECIFIED Assessment/Plan see problem list
[2017-07-07 15:50] VITALS: BP 137/95; PULSE 83; TEMP 98.4
--- NOTE | 2017-07-07 16:26 | PATH ---
Surgical Pathology Report Patient Name: BERTRAM JI [facility]. Rec. #: [id number] /Age/Gender: 1925 (Age: 89) / M Account: [id number] Location: [address] [place] [address]/[facility] Taken: 07/05/2017 Received: 07/05/2017 Reported: 07/07/2017 Physicians: Jose Francisco Jimenez M.D. Specimen(s) Received TONGUE BIOPSY Clinical History Recurrent oral ulcers. Previous biopsy negative. Rule out fungus, pemphigoid, vasculitis, neoplasia, other. Final Diagnosis TONGUE, PUNCH BIOPSY: SQUAMOUS MUCOSA WITH MARKED ACUTE AND CHRONIC INFLAMMATION AND ULCERATION. PAS SPECIAL STAIN IS NEGATIVE FOR FUNGAL ORGANISMS. SEE COMMENT. Comment: Immunohistochemical stains performed at [place], [place] ([id number]) and interpreted at [facility] show a mixed inflammatory infiltrate comprised predominantly by CD3+ T cells admixed with CD20+ B cells and scattered CD163+ macrophages. CD43 highlights the inflammatory infiltrate, while MPO stains granulocytes. Rare cells are positive for CD117 (? mast cells). Prior history of MDS/MPN noted. Suggest clinical/radiologic correlation. Immunofluorescence studies are pending and will be reported separately. Electronically Signed Latonya Bucio M.D. Addendum Reported: 07/11/2017 Addendum Diagnosis IMMUNOFLUORESCENCE STUDY performed and interpreted at [facility], [place], [place] ([id number]) TONGUE: DIAGNOSIS: NON DIAGNOSTIC IMMUNOFLUORESCENCE STUDY Note: This study is non diagnostic because it is entirely lesional in character. Furthermore, no mucosa is present. See complete report ([id number]) from [facility], [place], [place] for additional details. Latonya Bucio M.D. Gross Description Received fresh labeled with the patient's name and indicated on the requisition to be biopsy of oral tongue are 2 pieces of arriaga tissue each of which is 0.3 cm in greatest dimension. One piece is submitted for immunofluorescent studies. The other piece is submitted in one cassette. [facility]/07/05/2017 [facility]/07/05/2017
--- NOTE | 2017-07-07 18:25 | PATH ---
Surgical Pathology Report Patient Name: BERTRAM JI [facility]. Rec. #: [id number] /Age/Gender: 1925 (Age: 89) / M Account: [id number] Location: [address] [place] [address] Taken: 07/05/2017 Received: 07/06/2017 Reported: 07/07/2017 Physicians: Luh Regan M.D. Specimen(s) Received PERIPHERAL BLOOD Clinical History MDS/MPN Final Diagnosis COMPREHENSIVE FLOW PANEL [facility] [place] ([id number]) shows the following: INTERPRETATION: ATYPICAL MONOCYTOSIS. GRANULOCYTES WITH LEFT-SHIFT AND 0.1% BLASTS. Comment: The findings are similar to a recent specimen from 07/01/2017. Again, they raise the possibility of peripheral blood involvement by a myelodysplastic neoplasm, or a mixed myelodysplastic/myeloproliferative process, such as chronic myelomonocytic leukemia (CMML).Correlation with relevant clinical and laboratory data is essential. Additional studies pending. Findings will be reported separately. See [facility] report ([id number]) for additional details. Electronically Signed Latonya Bucio M.D. Addendum Reported: 07/08/2017 Addendum Diagnosis Myelodysplasia FISH Report performed and interpreted at [facility] in [place], [place] ([id number]) shows the following. INTERPRETATION: No evidence of deletion 5q or monosomy 5 is present. No evidence of deletion 7q or monosomy 7 is present. No evidence of trisomy 8 (+8) is present. No evidence of deletion 13q14 is present. No evidence of a rearrangement of 11q23. No evidence of a deletion of the p53 (17p13) locus. No evidence of deletion 20q12 is present. Comments: Correlation with pending cytogenetics ([id number]) is recommended. See [facility] report for details. Latonya Bucio M.D. Addendum Reported: 07/14/2017 Addendum Diagnosis CYTOGENETIC KARYOTYPE ANALYSIS performed and interpreted at [facility] [place] ([id number]) TEST RESULTS: 46, XX [20] DIAGNOSTIC INTERPRETATION: Normal Karyotype Within the limits of the cytogenetics methods, the chromosome had normal G-banding patterns with no evidence of an acquired clonal numerical or structural abnormality. This normal result does not rule out neoplasm. Subtle rearrangements or the presence of an aberrant clone in a low proportion of cells cannot be ruled out. Correlation with other clinical and hematologic data is suggested. Analysis was performed on cells from unstimulated tissue cultures. See [facility] report for details ([id number]). Latonya Bucio M.D. Gross Description Received are 2 green top tubes of blood which are sent to [facility]. 07/06/2017 [place]udi07/06/2017
== END 2017-07-07 19:55 | disposition home or self-care (01) | DRG 98 ==
LOC: JER 16:43 → JERFT 16:43 → JERBED 22:29 → J6S 07-01 02:01 → OBSVTOIN 07-02 13:52
PROVIDERS: ADMIT Internal Medicine; ATTEND Family Medicine
PROC: 0CB70ZX Excision of Tongue, Open Approach, Diagnostic (ICD-10-PCS; principal; 2017-07-05)
DX: K12.1 Other forms of stomatitis (principal); E11.9 Type 2 diabetes mellitus without complications; E03.9 Hypothyroidism, unspecified; D46.9 Myelodysplastic syndrome, unspecified; E86.0 Dehydration; B19.10 Unspecified viral hepatitis B without hepatic coma; J02.9 Acute pharyngitis, unspecified; N40.0 Benign prostatic hyperplasia without lower urinary tract symptoms; R63.4 Abnormal weight loss; Z68.25 Body mass index [BMI] 25.0-25.9, adult; R13.10 Dysphagia, unspecified; D64.9 Anemia, unspecified
CPT/HCPCS: 36415; 70491-TC; 71046-TC-FY; 71260-TC; 74177-TC; 80053; 80076; 81003; 82105; 82728; 82962; 83036; 83516; 83540; 83550; 83605; 83615; 83735; 84100; 84443; 84550; 85025; 85610; 85730; 86038; 86140; 86593; 86695; 86696; 86704; 86705; 86706; 86707; 86708; 86850; 86900; 86901; 87040; 87086; 87252; 87340; 87350; 87517; 88300-TC; 88305-TC; 93005; 93010; 97116-GP; 97161-GP; 99282-25; G0378; J7030

== ENCOUNTER 2017-10-01 13:44 | Observation (INO) | payer OTHER ==
--- NOTE | 2017-10-01 14:08 | PDOC ---
History of Present Illness - General Chief Complaint: Chest Pain Stated Complaint: CHEST PAIN History Source: Patient, Family - History of Present Illness Initial Comments: 10/01/17 14:04 89 year old male with a hx of myelodysplastic syndrome, DM, hypothyroidism, and anemia presents to the hospital for a 4 day hx of dysphagia, constipation and 30 min history of epigastric fullness. His daughter states that he has not been able to eat or drink anything in this amount of time, only being able to drink some tea, for which he spit up and was not able to swallow. During the same time , the patient has not had any bowel movements. His daughter reports that he was diagnosed with myelodysplastic syndrome several months ago by Dr. Turcios and hepatitis B as well. She states that the hepatitis was not treated due to risk of side effects of medication in this age group. Has never had an EGD in the past. Past History - Past Medical History Allergies/Adverse Reactions: Allergies Allergy/AdvReac Type Severity Reaction Status Date / Time No Known Allergies Allergy Verified 10/01/17 13:52 Home Medications: Ambulatory Orders Levothyroxine [Synthroid -] 50 mcg PO DAILY 03/04/17 Aspirin [Adult Aspirin Regimen] 81 mg PO DAILY 07/01/17 Mag Hydrox/Alh/Smc/Dpha/Lido [Magic Mouthwash *Sjr Formula* -] 5 ml MM Q6HPO # 200 ml 07/06/17 Cyanocobalamin (Vitamin B-12) [Vitamin B-12] 1,000 mcg SL DAILY 10/01/17 Anemia: Yes COPD: No Diabetes: Yes Disorders: Yes (BPH) Thyroid Disease: Yes (Hypothyroid) - Immunization History Immunization Up to Date: Yes - Suicide/Smoking/Psychosocial Hx Smoking History: Never smoked Have you smoked in the past 12 months: No Hx Alcohol Use: No Drug/Substance Use Hx: No Substance Use Type: None Hx Substance Use Treatment: No Review of Systems - Review of Systems Constitutional: Yes: Chills. No: Fever HEENTM: Yes: Mouth Pain, Difficulty Swallowing Respiratory: No: Cough, Shortness of Breath Cardiac (ROS): No: Chest Pain ABD/GI: Yes: Constipated *Physical Exam - Vital Signs Last Vital Signs Temp Pulse Resp BP Pulse Ox 98 F 74 20 122/71 98 10/01/17 13:47 10/01/17 18:10 10/01/17 18:10 10/01/17 18:10 10/01/17 18:10 - Physical Exam General Appearance: Yes: Nourished, Appropriately Dressed. No: Apparent Distress HEENT: positive: TERI, Lesions (several round, erythematous, non-raised lesions noted on tongue and roof of mouth) Cardiovascular: positive: Regular Rhythm, Regular Rate Vascular Pulses: Femoral (R): 2+, Femoral (L): 2+, Carotid (R): 2+, Carotid (L) : 2+, Dorsalis-Pedis (R): 2+, Doralis-Pedis (L): 2+ Gastrointestinal/Abdominal: positive: Normal Bowel Sounds, Tender (epigastrum) Extremity: positive: Normal Range of Motion Integumentary: positive: Normal Color, Dry, Warm Neurologic: positive: clerk stenographer II-XII NML intact, Fully Oriented, Motor Strength 5/5 Heart Score/ECG Review - History History: Slightly suspicious - Electrocardiogram EKG: Normal - Age Age: >/= 65 - Risk Factors Risk Factors Heart Score: Yes Hx Diabetes Based on the list above the patient has:: 1-2 risk factors - Troponin Troponin: </= normal limit - Score Heart Score - Total: 3 - ECG Intrepretation Rhythm: Regular Rhythm - [place]: Normal - ECG Impressions Normal ECG: Yes ED Treatment Course - LABORATORY CBC & Chemistry Diagram: 10/01/17 14:15 10/01/17 14:15 - ADDITIONAL ORDERS Additional order review: Laboratory Results 10/01/17 14:15 Sodium 139 Potassium 3.4 L Chloride 107 Carbon Dioxide 25 D Anion Gap 7 L BUN 10 D Creatinine 1.2 D Creat Clearance w eGFR 57.01 Random Glucose 151 H D Calcium 7.8 L Phosphorus 2.8 Magnesium 2.2 Total Bilirubin 1.1 H D AST 20 ALT 18 D Alkaline Phosphatase 58 Creatine Kinase 146 Troponin I < 0.02 Total Protein 7.6 Albumin 3.3 L Lipase 86 TSH 2.36 D 10/01/17 14:15 RBC 3.24 L MCV 93.6 MCHC 33.1 RDW 15.0 D MPV 8.3 Neutrophils % 52.4 Lymphocytes % 10.8 Monocytes % 35.6 H Eosinophils % 0.6 Basophils % 0.6 - RADIOLOGY Radiology Studies Ordered: Category Date Time Status ABDOMEN & PELVIS CT WITH CONTR [CT] Stat CT Scan 10/01/17 15:35 Taken CXRPORT [CHEST X-RAY PORTABLE*] [RAD] Stat Radiology 10/01/17 14:02 Completed - Medications Given in the ED: ED Medications Discontinued Medications Generic Name Dose Route Start Last Admin Trade Name Chandanaq PRN Reason Stop Dose Admin Sodium Chloride 1,000 mls @ 1,000 mls/hr 10/01/17 14:41 10/01/17 15:40 Normal Saline - IV 10/01/17 15:40 1,000 mls/hr ASDIR STA Administration Potassium Chloride 10 meq in 100 mls @ 100 mls/hr 10/01/17 15:15 10/01/17 15: 40 Potassium Chloride 10 Meq Premix Ivpb - IVPB 10/01/17 16:14 100 mls/hr Q60M MANNY Administration Levothyroxine Sodium 50 mcg 10/01/17 17:00 10/01/17 17:42 Synthroid - PO Not Given DAILY MANNY Medical Decision Making - Medical Decision Making 89 year old male with a hx of MDS, DM, hypothyroidism, anemia presented to the hospital for 4 day hx of difficulty swallowing, chills, and epigastric fullness/ pressure -CBC -CMP -troponin -EKG -chest xray -lipase -1L fluid bolus -NPO due to dysphagia -will re-evaluate Re-evaluated at 3:30pm -H&H 10/30.3 -thrombocytopenia 130 [place] [address] -hypokalemia at 3.4 -call placed to Dr. Turcios's service, spoke to covering physician -CT abdomen/pelvis with contrast -will likely need admission/GI consult CBC, BMP 10/01/17 14:15 10/01/17 14:15 *DC/Admit/Observation/Transfer Diagnosis at time of Disposition: Abdominal pain - Discharge Dispostion Decision to Admit order: Yes - Referrals - Patient Instructions - Post Discharge Activity
--- NOTE | 2017-10-01 14:11 | PDOC ---
Attending Attestation - HPI HPI: 10/01/17 15:14 The patient is an 89 year old male with a significant past medical history of hypothyroidism, myelodysplastic syndrome, diabetes, and anemia who presents to the emergency department for evaluation of dysphagia. The patient reports a 4 day history of dysphagia. As per family member, the patient reports attempting to take in fluids, but endorses spitting it up what he took in. The patient reports taking Ducolax last night and this morning secondary to a 5 day history of no bowel movement. Denies fever, chills, nausea, diarrhea, shortness of breath, chest pain, and headache. Allergies: NKDA Past surgical history: Partial Prostateectomy Social history: No reported cigarette, alcohol, or drug use. PCP: Dr. Brooks <Vaibhav Chaves - Last Filed: 10/01/17 15:14> - Resident Resident Name: Obinna Newsome - ED Attending Attestation I have performed the following: I have examined & evaluated the patient, The case was reviewed & discussed with the resident, I agree w/resident's findings & plan, Exceptions are as noted - Physicial Exam PE: 10/01/17 17:11 Mr Sánchez presents with RRR CTA Clear discomfort when he attempts to swallow Multiple oral lesions noted on the tongue and roof of the mouth No abd tenderness - Medical Decision Making 10/01/17 17:11 Laboratory Tests 10/01/17 10/01/17 14:15 14:15 WBC 14.0 H D Hgb 10.0 L Hct 30.3 L Plt Count 130 L Monocytes % 35.6 H Myelocytes % (Man) 21 H D Metamyelocytes 4 H D Sodium 139 Potassium 3.4 L Chloride 107 Carbon Dioxide 25 D BUN 10 D Creatinine 1.2 D Random Glucose 151 H D Creatine Kinase 146 Troponin I < 0.02 Lipase 86 TSH 2.36 D 10/01/17 17:16 Pt has had persistent worsening dysphagia HAs known oral lesions for which he has been placed on Magic Mouthwash This has not helped Pt daughter states he should be given steroids Will clear this with his oncologist Pt also presents with epigastric pain, pressure EKG: SR, No ST elevations or depressions, T waves upright No tachycardia <Sarah Thurston - Last Filed: 10/01/17 17:29> Attestations - Attestations Documentation prepared by Renju Raju, acting as medical sociologist for Sarah Thurston MD. <Vaibhav Chaves - Last Filed: 10/01/17 15:14>
[2017-10-01 14:19] LABS: BASO % 0.6 % (0-2.0); EOS % 0.6 % (0-4.5); HEMATOCRIT 30.3 % (35.4-49); LYMPH % 10.8 % (8-40); MCH 30.9 pg (25.7-33.7); MCHC 33.1 g/dl (32.0-35.9); MEAN CELL VOLUME 93.6 fl (80-96); MEAN PLT VOLUME 8.3 fl (7.5-11.1); MONO % 35.6 % (3.8-10.2); NEUT % 52.4 % (42.8-82.8); PLATELET COUNT 130 K/MM3 (134-434); RBC 3.24 M/mm3 (4.00-5.60)
[2017-10-01 14:38] LABS: CHLORIDE 107 mmol/L (98-107); POTASSIUM 3.4 mmol/L (3.5-5.1); SODIUM 139 mmol/L (136-145)
[2017-10-01] MEDS ORDERED: SODIUM CHLORIDE 1,000 ML IV STA (14:41)
[2017-10-01 14:46] LABS: ALBUMIN 3.3 g/dl (3.4-5.0); ANION GAP 7 (8-16); BILIRUBIN,TOTAL 1.1 mg/dL (0.2-1.0); BLOOD UREA NITROGEN 10 mg/dL (7-18); CALCIUM 7.8 mg/dL (8.5-10.1); CO2 25 mmol/L (21-32); CREATININE 1.2 mg/dL (0.7-1.3); GLUCOSE,RANDOM 151 mg/dL (74-106); MAGNESIUM 2.2 mg/dL (1.8-2.4); PHOSPHOROUS 2.8 mg/dL (2.5-4.9); SGOT/AST 20 U/L (15-37); SGPT/ALT 18 U/L (12-78); TOT PROT 7.6 g/dl (6.4-8.2)
[2017-10-01 14:48] LABS: ALK PHOS 58 U/L (45-117)
[2017-10-01] MEDS ORDERED: KCL 10 MEQ IVPB 10 MEQ/100 ML INFUS.BAG IVPB SCH (15:15)
[2017-10-01 15:28] LABS: LIPASE 86 U/L (73-393)
[2017-10-01 15:35] LABS: ACANTHOCYTES 0; ANISOCYTOSIS 0; HELMET CELLS 0; HOWELL-JOLLY BODIES 0; MACROCYTOSIS 0; OVALOCYTE 0; PLATELET ESTIMATE DECREASED; ROULEAU 0; SICKELED CELLS 0; TARGET CELLS 0; TEAR DROP CELLS 0; TOXIC GRANULATION 0
[2017-10-01] MEDS ORDERED: KCL 10 MEQ IVPB 10 MEQ/100 ML INFUS.BAG IVPB ONE (15:37)
[2017-10-01] MEDS ORDERED: ACETAMINOPHEN 325 MG TABLET (FP) PO PRN (16:54)
[2017-10-01] MEDS ORDERED: BENZOCAINE/MENTH/CETYLPYRD CL 1 EACH LOZENGE MM PRN ×2 (17:00→19:09)
[2017-10-01] MEDS ORDERED: LEVOTHYROXINE NA 50 MCG TABLET (FP) PO SCH (17:00)
[2017-10-01] MEDS ORDERED: ASPIRIN COATED 81 MG TABLET.EC ONE (17:38)
[2017-10-01] MEDS ORDERED: LEVOTHYROXINE NA 25 MCG TABLET (FP) ONE (17:39)
[2017-10-01] MEDS: LEVOTHYROXINE NA 50 MCG TABLET (FP) PO SCH (17:42)
[2017-10-01] MEDS: ASPIRIN COATED 81 MG TABLET.EC PO SCH (17:42)
[2017-10-01] MEDS: LACTATED RINGERS SOLUTION 1,000 ML IV SCH (17:42)
[2017-10-01] MEDS ORDERED: diphenhydrAMINE HCL 12.5 MG/5 ML BULK BOTTLE ONE (18:15)
[2017-10-01] MEDS ORDERED: LIDOCAINE VISCOUS 2% ORAL/TOP 20 ML UNIT-DOSE CUP ONE (18:15)
[2017-10-01] MEDS ORDERED: MAG HYDROX/AL HYDROX/SIMETH 30 ML UNIT-DOSE CUP ONE (18:15)
[2017-10-01] MEDS: MAG HYDROX/ALH/SMC/DPHA/LIDO 240 ML MOUTHWASH MM SCH (21:54)
[2017-10-01] MEDS: HEPARIN NA (PORCINE) 5,000 UNITS/ML 1ML VIAL SQ SCH (21:55)
[2017-10-01] MEDS: valACYclovir HCL 500 MG TABLET (FP) PO SCH (21:55)
[2017-10-01] MEDS ORDERED: valACYclovir HCL 1000 MG TABLET PO SCH (22:00)
[2017-10-02] MEDS: MAG HYDROX/ALH/SMC/DPHA/LIDO 240 ML MOUTHWASH MM SCH ×5 (00:33→23:37)
[2017-10-02] MEDS: LEVOTHYROXINE NA 50 MCG TABLET (FP) PO SCH (06:04)
[2017-10-02] MEDS: LACTATED RINGERS SOLUTION 1,000 ML IV SCH (06:05)
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
[2017-10-02 07:38] LABS: BASO % 0.5 % (0-2.0); EOS % 0.9 % (0-4.5); HEMATOCRIT 28.4 % (35.4-49); HEMOGLOBIN 9.6 GM/dL (11.7-16.9); LYMPH % 11.8 % (8-40); MCH 31.6 pg (25.7-33.7); MCHC 33.7 g/dl (32.0-35.9); MEAN CELL VOLUME 93.7 fl (80-96); MEAN PLT VOLUME 8.5 fl (7.5-11.1); MONO % 36.4 % (3.8-10.2); NEUT % 50.4 % (42.8-82.8); PLATELET COUNT 115 K/MM3 (134-434); RBC 3.03 M/mm3 (4.00-5.60); RDW 14.9 % (11.9-15.9); WHITE BLOOD COUNT 13.6 K/mm3 (4.0-10.0)
[2017-10-02 07:59] LABS: ANION GAP 8 (8-16); BLOOD UREA NITROGEN 7 mg/dL (7-18); CALCIUM 7.3 mg/dL (8.5-10.1); CHLORIDE 108 mmol/L (98-107); CO2 24 mmol/L (21-32); GLUCOSE,RANDOM 85 mg/dL (74-106); POTASSIUM 3.9 mmol/L (3.5-5.1); SODIUM 140 mmol/L (136-145)
[2017-10-02 08:01] LABS: CREATININE 0.8 mg/dL (0.7-1.3)
--- NOTE | 2017-10-02 08:43 | PN ---
Progress Note (short form) - Note Progress Note: ID 89 year old male with Myelodysplastic syndrome HEP B asked to see for recurrent painful oral ulcerations and dysphagia. As per his daughter these are steroid sensitive and 2 prior biopsies have only shown nonspecific inflammation. No fevers Exam shows aphtous appearing ulceration palate tongue NO cervical adenopathy Laboratory Tests 10/02/17 10/02/17 06:00 06:00 WBC 13.6 H Hgb 9.6 L Hct 28.4 L Plt Count 115 L BUN 7 D Creatinine 0.8 D Assessment Etiology of these ulcers not yet defined. No path evidence for vasculitis and I don't know of an association with Hepatitis B They are not herpetic. I have seen pemphigus present this way as well as Bechets and Sweets syndrome. Plan IV steroids and consider both rheumatology and Derm evaluations in or outpt [facility] Problem List - Problems (1) Aphthous stomatitis Code(s): K12.0 - RECURRENT ORAL APHTHAE (2) Myelodysplasia (myelodysplastic syndrome) Code(s): D46.9 - MYELODYSPLASTIC SYNDROME, UNSPECIFIED
[2017-10-02] MEDS: SODIUM CHLORIDE 0.9%/KCL 20 MEQ/1,000 ML INFUS.BAG IV SCH ×2 (09:16→23:36)
[2017-10-02] MEDS: ASPIRIN COATED 81 MG TABLET.EC PO SCH (09:17)
[2017-10-02] MEDS: valACYclovir HCL 500 MG TABLET (FP) PO SCH ×2 (09:17→21:49)
[2017-10-02] MEDS: methylPREDNISolone NA SUCC 40 MG/1 ML VIAL IVPUSH SCH ×3 (09:17→23:51)
[2017-10-02] MEDS: HEPARIN NA (PORCINE) 5,000 UNITS/ML 1ML VIAL SQ SCH ×2 (09:17→22:03)
--- NOTE | 2017-10-02 09:30 | CONSULT ---
Consult Consult Specialty:: Hematology/Oncology Referred by:: Reason for Consultation:: Hx of MDS - History of Present Illness Chief Complaint: DYSPHAGIA OF SHORT DURATION History of Present Illness: 89 y/o male with prior Hx of MDS, hyopthyroidism,Hep B, neuropathy now presenting with a 5 day history of dysphagia to solids and liquids as well as constipation. Heme/Onc consulted to evaluate patient for his prior history of MDS. Patient follows closely with and his last clinic visit was . He is on clinical surveillance for his MDS. Last peripheral blood flow from 01/2017 shows 0.1% blasts. He was noted during this visit to have oral sores and mucositis. Per Hx obtained from his daughter his sores are chronic and steriod sensitive. 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 (h/o intracranial bleed requiring saúl holes) Gastrointestinal: Yes: Other (Recent diagnosis of hepatitis B surface antigen and hepatitis B core antibody positive ) Renal/: Yes: BPH (partial vs total prostatectomy), Renal Calculi Infectious Disease: Yes: Other (Hep B suface Ag and Hep B surface Ab positive ) ENT: Yes: Other (oral ulcerations ) Endocrine: Yes: Hypothyroidism - Past Surgical History Past Surgical History: Yes: Appendectomy - Alcohol/Substance Use Hx Alcohol Use: Yes (social) History of Substance Use: reports: None - Smoking History Smoking history: Never smoked Have you smoked in the past 12 months: No - Social History Usual Living Arrangement: With Child ADL: Independent 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, 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 [employer] History of Recent Travel: Yes (to [facility]) Home Medications - Allergies Allergies/Adverse Reactions: Allergies Allergy/AdvReac Type Severity Reaction Status Date / Time No Known Allergies Allergy Verified 10/01/17 13:52 - Home Medications Home Medications: Ambulatory Orders Levothyroxine [Synthroid -] 50 mcg PO DAILY 03/04/17 Aspirin [Adult Aspirin Regimen] 81 mg PO DAILY 07/01/17 Mag Hydrox/Alh/Smc/Dpha/Lido [Magic Mouthwash *Sjr Formula* -] 5 ml MM Q6HPO # 200 ml 07/06/17 Cyanocobalamin (Vitamin B-12) [Vitamin B-12] 1,000 mcg SL DAILY 10/01/17 Family Disease History - Family Disease History Family Disease History: CA: Daughter (daughter age 19 of leukemia), Other: Father (killed by [employer]), Mother (liver to 82), Sister (twin sister is healthy) Physical Exam Vital Signs: Vital Signs Temperature 98.7 F 10/02/17 06:07 Pulse Rate 18 L 10/02/17 06:07 Respiratory Rate 18 10/02/17 06:07 Blood Pressure 108/57 10/02/17 06:07 O2 Sat by Pulse Oximetry (%) 100 10/02/17 02:00 Labs: CBC, BMP 10/02/17 06:00 10/02/17 06:00 Assessment/Plan 89 y/o male with MDS on clinical surveillance, Hep B, neuropathy admitted with dysphagia and oral ulceration -would recommend GI evaluation for EGD and biopsy- DD- infectious (HSV, CMV) vs. autoimmune vs aphthous ulcers -send out CMV VL, HSV pcr - symptomatic relief with a short course of PO steroids prednisone 20 mg PO daily as well as lidocaine swish and swallow -CBC reviewed, no indication for transfusions -Will continue to follow with you
[2017-10-02 11:17] VITALS: BMI 27.7
--- NOTE | 2017-10-02 11:51 | EKG ---
Test Reason : Blood Pressure : / mmHG Vent. Rate : 092 BPM Atrial Rate : 092 BPM P-R Int : 176 ms QRS Dur : 076 ms QT Int : 348 ms P-R-T Axes : 060 -19 020 degrees QTc Int : 430 ms NORMAL SINUS RHYTHM NORMAL ECG WHEN COMPARED WITH ECG OF 30-JUN-2017 21:12, NO SIGNIFICANT CHANGE WAS FOUND Confirmed by MD Molina Edward ([id number]) on 10/02/2017 11:51:26 AM Referred By: Confirmed By:Linus Molina MD
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
[2017-10-02] MEDS ORDERED: MINERAL OIL ENEMA 133 ML ENEMA PR ONE (13:00)
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
[2017-10-02] MEDS: POLYETHYLENE GLYCOL 3350 119 GM BTL PO SCH ×2 (15:45→21:50)
[2017-10-02] MEDS ORDERED: PT OWN MED DRAWER 7, Y5N ONE (20:29)
[2017-10-02] MEDS: SENNOSIDES 8.8 MG/5 ML BULK BOTTLE PO SCH (21:50)
[2017-10-03] MEDS: POLYETHYLENE GLYCOL 3350 119 GM BTL PO SCH (06:15)
[2017-10-03] MEDS: LEVOTHYROXINE NA 50 MCG TABLET (FP) PO SCH (06:15)
[2017-10-03] MEDS: MAG HYDROX/ALH/SMC/DPHA/LIDO 240 ML MOUTHWASH MM SCH ×3 (06:15→18:00)
[2017-10-03 08:58] LABS: BASO % 0.5 % (0-2.0); EOS % 0.1 % (0-4.5); HEMATOCRIT 29.3 % (35.4-49); HEMOGLOBIN 9.8 GM/dL (11.7-16.9); LYMPH % 5.5 % (8-40); MCH 30.9 pg (25.7-33.7); MCHC 33.5 g/dl (32.0-35.9); MEAN CELL VOLUME 92.3 fl (80-96); MONO % 13.7 % (3.8-10.2); NEUT % 80.2 % (42.8-82.8); PLATELET COUNT 137 K/MM3 (134-434); RBC 3.18 M/mm3 (4.00-5.60); RDW 14.9 % (11.9-15.9); WHITE BLOOD COUNT 17.2 K/mm3 (4.0-10.0)
[2017-10-03 09:13] LABS: ALBUMIN 3.1 g/dl (3.4-5.0); ANION GAP 10 (8-16); BLOOD UREA NITROGEN 10 mg/dL (7-18); CHLORIDE 109 mmol/L (98-107); CO2 20 mmol/L (21-32); LDH 497 U/L (87-241); POTASSIUM 4.2 mmol/L (3.5-5.1); SODIUM 139 mmol/L (136-145)
--- NOTE | 2017-10-03 09:17 | PN ---
Progress Note, Physician History of Present Illness: better today - Current Medication List Current Medications: Active Medications Acetaminophen (Tylenol -) 650 mg PO Q4H PRN PRN Reason: PAIN LEVEL 6-10 Aspirin (Ecotrin -) 81 mg PO DAILY [facility] Last Admin: 10/02/17 09:17 Dose: 81 mg Benzocaine/Menthol (Cepacol Lozenge -) 1 each MM DAILY PRN PRN Reason: SORE THROAT Last Admin: 10/01/17 21:54 Dose: 1 each Heparin Sodium (Porcine) (Heparin -) 5,000 unit SQ BID [facility] Last Admin: 10/02/17 22:03 Dose: 5,000 unit Potassium Chloride/Sodium Chloride (Ns+20 Meq Kcl -) 20 meq in 1,000 mls @ 75 mls/hr IV ASDIR [facility] Last Admin: 10/02/17 23:36 Dose: 75 mls/hr Levothyroxine Sodium (Synthroid -) 50 mcg PO DAILY@0700 [facility] Last Admin: 10/03/17 06:15 Dose: 50 mcg Lidocaine/Aluminum/Magnesium/Simeth (Magic Mouthwash *Sjr Formula* -) 5 ml MM Q6HPO [facility] Last Admin: 10/03/17 06:15 Dose: 5 ml Methylprednisolone Sodium Succinate (Solu-Medrol -) 60 mg IVPUSH Q8H [facility] Last Admin: 10/02/17 23:51 Dose: 60 mg Pantoprazole Sodium (Protonix -) 40 mg PO DAILY [facility] Polyethylene Glycol (Miralax (For Daily Use) -) 17 gm PO TID [facility] Last Admin: 10/03/17 06:15 Dose: 17 gm Senna (Senna Oral Solution -) 8.8 mg PO HS [facility] Last Admin: 10/02/17 21:50 Dose: 8.8 mg Valacyclovir HCl (Valtrex -) 1,000 mg PO BID [facility] Last Admin: 10/02/17 21:49 Dose: 1,000 mg - Objective Vital Signs: Vital Signs Temperature 97.9 F 10/03/17 05:42 Pulse Rate 77 10/03/17 05:42 Respiratory Rate 20 10/03/17 05:42 Blood Pressure 118/73 10/03/17 05:42 O2 Sat by Pulse Oximetry (%) 97 10/03/17 02:00 Cardiovascular: Yes: S1, S2 Respiratory: Yes: Regular, CTA Bilaterally Gastrointestinal: Yes: Normal Bowel Sounds, Soft. No: Tenderness Labs: CBC, BMP 10/03/17 07:00 Assessment/Plan - Problems (1) At risk for dehydration due to poor fluid intake Assessment/Plan: 2/2 to oral ulcer- biopsy in the past negative -Was supposed to see oral surgeon at [place], which he hasn't -derm noted -IVF -GI and Swallow eval -Magic mouthwash -Cepacol lozenges Code(s): Z91.89 - OT PERSONAL RISK FACTORS, NOT ELSEWHERE CLASSIFIED (2) Myelodysplasia (myelodysplastic syndrome) Assessment/Plan: -Sees Dr Turcios outpatient -Hematology consult Code(s): D46.9 - MYELODYSPLASTIC SYNDROME, UNSPECIFIED (3) Oral ulcer Assessment/Plan: -Oral vasculitis -Cepacol lozenges -Magic mouthwash -Stabilize here, d/c pt in AM to follow up with Oral surgeon Code(s): K12.1 - OTHER FORMS OF STOMATITIS (4) Constipation Assessment/Plan: -Senna HS Code(s): K59.00 - CONSTIPATION, UNSPECIFIED (5) Hypokalemia Assessment/Plan: 2/2 to decreased oral intake -IVF- N/S + KCl 20 meq @ 75 cc/hr -repeat labs this AM pending Code(s): E87.6 - HYPOKALEMIA
--- NOTE | 2017-10-03 09:30 | CONS ---
DATE OF CONSULTATION: DATE OF DICTATION: 10/02/2017 This is an 89-year-old [id number] male who I am asked to see for evaluation of painful oral ulcers. The patient has known history of myelodysplastic syndrome and I do not think that he has been receiving any chemotherapy, though he is well-known to Dr. Turcios. He also has a history of hepatitis B and, based on his age, was thought not to be a candidate for hepatitis B treatment. I am asked to see him for oral ulcerations of his mouth, which are painful and causing dysphagia. According to his daughter, a nurse practitioner, the ulcers have been chronic and recurrent and been present on and off for several months. He has previously been seen by ENT as well as by our service in June and had had previous biopsies only showing nonspecific inflammation. According to the daughter, these ulcers are steroid-responsive, but recur once steroids are discontinued. He has no fever, chills, or other systemic complaints other than dysphagia. He has no rash, history of joint pain, genital lesions, or visual complaints. That said, his Uzbek is poor and it is difficult to get any further history from him. PAST MEDICAL HISTORY: Myelodysplastic, diabetes mellitus, hypothyroidism, and chronic anemia. MEDICATIONS: Levothyroxine; aspirin; B12. ALLERGIES: None known. SOCIAL HISTORY: He never smoked. No history of alcohol use. FAMILY HISTORY: Noncontributory. REVIEW OF SYSTEMS: Respiratory: No cough, shortness of breath. Cardiac: No chest pain, palpitations, murmur. Gastrointestinal: No abdominal pain. Positive dysphagia. No blood per rectum, no diarrhea. Genitourinary: No dysuria, hematuria, genital lesions. PHYSICAL EXAMINATION: General: An elderly male sitting up in bed, but in apparent pain and distress due to his dysphagia and painful mouth sores. Vital Signs: His temperature was 98.7, pulse , blood pressure 108/57, respirations 18. HEENT: Oropharynx reveals several discrete, what appeared to be, aphis-appearing ulcerations involving his tongue and palate. Neck: Supple with no adenopathy. Lungs: Clear to percussion and auscultation. Heart: S1, S2, regular rhythm without audible murmur. Abdomen: Soft, nontender without hepatosplenomegaly. Neurologic: Cranial nerves intact. BUN 7, creatinine 0.8. Liver enzymes within normal limits. White count of 14,000, hemoglobin 10, platelets of 130 with 52% polys, 11% lymphs, 35% monocytes, metamyelocytes. ASSESSMENT: An 89-year-old male with known myelodysplastic syndrome and hepatitis B presents with recurrent, painful oral, glossal, and palate ulcerations accompanied by severe dysphagia. As per daughter, these lesions are steroid-sensitive. Two prior biopsies have only shown nonspecific inflammation; these results are not in the computer here at [facility]. He has no fever or other systemic complaints at this time. Etiology of ulcers is not yet clearly defined. No pathologic evidence for vasculitis by history. I am unaware of any association of these lesions with mouth sores with hepatitis B. They do not appear herpetic. I have seen pemphigus present with isolated oral ulcers. Additional considerations in the differential would include Behcet as well as Sweet syndrome. For now, will resume IV steroids, Solu-Medrol. Case will be further discussed with Dr. Turcios. A GI consult with Dr. Timmons has been requested. VERNON RODARTE M.D. [id number]
[2017-10-03 09:31] LABS: ALK PHOS 52 U/L (45-117); BILIRUBIN,TOTAL 0.9 mg/dL (0.2-1.0); CALCIUM 7.4 mg/dL (8.5-10.1); CREATININE 0.8 mg/dL (0.7-1.3); GLUCOSE,RANDOM 177 mg/dL (74-106); SGOT/AST 34 U/L (15-37); SGPT/ALT 18 U/L (12-78); TOT PROT 7.4 g/dl (6.4-8.2)
[2017-10-03] MEDS: methylPREDNISolone NA SUCC 40 MG/1 ML VIAL IVPUSH SCH ×2 (09:42→18:00)
[2017-10-03] MEDS: SODIUM CHLORIDE 0.9%/KCL 20 MEQ/1,000 ML INFUS.BAG IV SCH ×2 (09:43→15:32)
[2017-10-03] MEDS: PANTOPRAZOLE 40 MG TABLET (FP) PO SCH (09:43)
[2017-10-03] MEDS: HEPARIN NA (PORCINE) 5,000 UNITS/ML 1ML VIAL SQ SCH ×2 (09:44→21:26)
[2017-10-03] MEDS: ASPIRIN COATED 81 MG TABLET.EC PO SCH (09:44)
[2017-10-03] MEDS: valACYclovir HCL 500 MG TABLET (FP) PO SCH ×2 (09:44→21:26)
--- NOTE | 2017-10-03 11:29 | PN ---
Progress Note (short form) - Note Progress Note: ulcers appear to be improving on steroids no complaints Vital Signs Period Temp Pulse Resp BP Sys/[place] Pulse Ox Last 24 Hr 97.6 F-98.3 F 65-97 18-20 109-137/61-73 97-100 tongue with erosions noted cor-rrr llungs clear abd soft,nt ext no edema CBC, BMP 10/03/17 07:00 10/03/17 07:00 a/p oral ulcers- recurrent, steroid responsive derm consult noted possible apthous stomatitis, ?lichen planus, ?pemphigus MDS Hep B
--- NOTE | 2017-10-03 12:24 | PN ---
GI Progress Note Subjective: GI Note: Rhys is tolerating full liquids without difficulty. He denies any residual throat pain and is willing to try solids. His constipation has also been resolved. He denies any abdominal pain or rectal bleeding. Hepatitis B DNA by PCR is still pending. - Objective Vital Signs: Vital Signs Temperature 97.9 F 10/03/17 05:42 Pulse Rate 77 10/03/17 05:42 Respiratory Rate 20 10/03/17 05:42 Blood Pressure 118/73 10/03/17 05:42 O2 Sat by Pulse Oximetry (%) 97 10/03/17 02:00 Laboratory Tests 10/01/17 10/02/17 10/03/17 14:15 06:00 07:00 WBC Hgb 10.0 L 9.6 L BUN 10 D Creatinine 0.8 LD Total 497 H D C-Reactive Protein 2.2 H Albumin 3.1 L Hep B DNA copies/mL Hep B DNA (Units/mL) 10/03/17 10/03/17 07:00 07:00 WBC 17.2 H Hgb 9.8 L BUN Creatinine LD Total C-Reactive Protein Albumin Hep B DNA copies/mL Pending Hep B DNA (Units/mL) Pending Constitutional: Calm Gastrointestinal Inspection: Yes: Distention (much softer than yesterday), Hernia (nontender umbilical hernia) ...Auscultate: Yes: Normoactive Bowel Sounds ...Palpate: Yes: Soft, Other (nontender) Labs: CBC, BMP 10/03/17 07:00 10/03/17 07:00 Problem List - Problems (1) Constipation Assessment/Plan: Fecal impaction has been resolved with Miralax. Will maintain at once a day. Will advance diet to solids. Code(s): K59.00 - CONSTIPATION, UNSPECIFIED (2) Hepatitis B Assessment/Plan: Hepatitis B DNA by PCR is pending. Code(s): B19.10 - UNSPECIFIED VIRAL HEPATITIS B WITHOUT HEPATIC COMA (3) Pharyngitis Assessment/Plan: Resolved Code(s): J02.9 - ACUTE PHARYNGITIS, UNSPECIFIED (4) Anemia Assessment/Plan: Anemia has stabilized. Will check haptoglobin given elevated LDH to exclude hemolysis. Code(s): D64.9 - ANEMIA, UNSPECIFIED Qualifiers: Bone marrow failure anemia type: unspecified bone marrow failure (5) Myelodysplasia (myelodysplastic syndrome) Code(s): D46.9 - MYELODYSPLASTIC SYNDROME, UNSPECIFIED (6) Oral ulcer Code(s): K12.1 - OTHER FORMS OF STOMATITIS
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
[2017-10-03] MEDS ORDERED: PT OWN MED DRAWER 7, Y5N ONE (20:33)
[2017-10-03] MEDS: SENNOSIDES 8.8 MG/5 ML BULK BOTTLE PO SCH (21:26)
--- NOTE | 2017-10-03 23:21 | PN ---
Progress Note (short form) - Note Progress Note: Patient seen and examined Reports feeling better Tolerating liquids Vital Signs: Vital Signs Temperature 97.9 F 10/03/17 05:42 Pulse Rate 77 10/03/17 05:42 Respiratory Rate 20 10/03/17 05:42 Blood Pressure 118/73 10/03/17 05:42 O2 Sat by Pulse Oximetry (%) 97 10/03/17 02:00 Laboratory Tests 10/01/17 10/02/17 10/03/17 14:15 06:00 07:00 WBC Hgb 10.0 L 9.6 L BUN 10 D Creatinine 0.8 LD Total 497 H D C-Reactive Protein 2.2 H Albumin 3.1 L Hep B DNA copies/mL Hep B DNA (Units/mL) 10/03/17 10/03/17 07:00 07:00 WBC 17.2 H Hgb 9.8 L BUN Creatinine LD Total C-Reactive Protein Albumin Hep B DNA copies/mL Pending Hep B DNA (Units/mL) Pending Constitutional: Calm tongue with erosions Abdomen-- ...Auscultate: Yes: Normoactive Bowel Sounds ...Palpate: Yes: Soft, Other (nontender) ext.--no c/c/e Labs: reviewed Assessment/Plan 89 y/o male with MDS on clinical surveillance, Hep B, neuropathy admitted with dysphagia and oral ulceration On steroids with improvement of oral ulcers Seen by Dr. Sandoval--/ pemphigus/? lichen planus biopsy by ? oral surgery or ? ENT f/u Dr. mendez consult
[2017-10-04] MEDS: methylPREDNISolone NA SUCC 40 MG/1 ML VIAL IVPUSH SCH ×3 (00:49→17:05)
[2017-10-04] MEDS: MAG HYDROX/ALH/SMC/DPHA/LIDO 240 ML MOUTHWASH MM SCH ×4 (00:49→17:05)
[2017-10-04] MEDS: SODIUM CHLORIDE 0.9%/KCL 20 MEQ/1,000 ML INFUS.BAG IV SCH ×2 (05:43→09:34)
[2017-10-04] MEDS: LEVOTHYROXINE NA 50 MCG TABLET (FP) PO SCH (06:10)
[2017-10-04 07:53] LABS: BASO % 0.3 % (0-2.0); EOS % 0.1 % (0-4.5); HEMATOCRIT 30.3 % (35.4-49); LYMPH % 3.5 % (8-40); MCH 30.9 pg (25.7-33.7); MCHC 33.1 g/dl (32.0-35.9); MEAN CELL VOLUME 93.3 fl (80-96); MEAN PLT VOLUME 9.1 fl (7.5-11.1); MONO % 8.7 % (3.8-10.2); NEUT % 87.4 % (42.8-82.8); PLATELET COUNT 137 K/MM3 (134-434); RBC 3.24 M/mm3 (4.00-5.60); RDW 14.8 % (11.9-15.9); RETICULOCYTES 1.82 % (0.5-1.5); WHITE BLOOD COUNT 29.2 K/mm3 (4.0-10.0)
[2017-10-04 08:01] LABS: CHLORIDE 109 mmol/L (98-107); POTASSIUM 4.5 mmol/L (3.5-5.1); SODIUM 139 mmol/L (136-145)
[2017-10-04 08:27] LABS: ANION GAP 9 (8-16); BLOOD UREA NITROGEN 12 mg/dL (7-18); CALCIUM 7.6 mg/dL (8.5-10.1); CO2 21 mmol/L (21-32); CREATININE 0.9 mg/dL (0.7-1.3); GLUCOSE,RANDOM 175 mg/dL (74-106)
[2017-10-04] MEDS: PANTOPRAZOLE 40 MG TABLET (FP) PO SCH (09:34)
[2017-10-04] MEDS: valACYclovir HCL 500 MG TABLET (FP) PO SCH (09:34)
[2017-10-04] MEDS: HEPARIN NA (PORCINE) 5,000 UNITS/ML 1ML VIAL SQ SCH (09:35)
[2017-10-04] MEDS: ASPIRIN COATED 81 MG TABLET.EC PO SCH (09:35)
[2017-10-04] MEDS: POLYETHYLENE GLYCOL 3350 119 GM BTL PO SCH ×2 (10:55→15:34)
[2017-10-04 11:03] LABS: ACANTHOCYTES 1+; ANISOCYTOSIS 1+; MACROCYTOSIS 1+; PLATELET ESTIMATE DECREASED
--- NOTE | 2017-10-04 11:26 | PN ---
Progress Note, Physician Chief Complaint: Dysphagia History of Present Illness: NAD Dysphagia improved - Current Medication List Current Medications: Active Medications Acetaminophen (Tylenol -) 650 mg PO Q4H PRN PRN Reason: PAIN LEVEL 6-10 Aspirin (Ecotrin -) 81 mg PO DAILY [facility] Last Admin: 10/04/17 09:35 Dose: 81 mg Benzocaine/Menthol (Cepacol Lozenge -) 1 each MM DAILY PRN PRN Reason: SORE THROAT Last Admin: 10/01/17 21:54 Dose: 1 each Heparin Sodium (Porcine) (Heparin -) 5,000 unit SQ BID [facility] Last Admin: 10/04/17 09:35 Dose: 5,000 unit Potassium Chloride/Sodium Chloride (Ns+20 Meq Kcl -) 20 meq in 1,000 mls @ 75 mls/hr IV ASDIR [facility] Last Admin: 10/04/17 09:34 Dose: Not Given Levothyroxine Sodium (Synthroid -) 50 mcg PO DAILY@0700 [facility] Last Admin: 10/04/17 06:10 Dose: 50 mcg Lidocaine/Aluminum/Magnesium/Simeth (Magic Mouthwash *Sjr Formula* -) 5 ml MM Q6HPO [facility] Last Admin: 10/04/17 05:41 Dose: 5 ml Methylprednisolone Sodium Succinate (Solu-Medrol -) 60 mg IVPUSH Q8H [facility] Last Admin: 10/04/17 09:35 Dose: 60 mg Pantoprazole Sodium (Protonix -) 40 mg PO DAILY [facility] Last Admin: 10/04/17 09:34 Dose: 40 mg Polyethylene Glycol (Miralax (For Daily Use) -) 17 gm PO DAILY [facility] Last Admin: 10/04/17 10:55 Dose: Not Given Senna (Senna Oral Solution -) 8.8 mg PO HS [facility] Last Admin: 10/03/17 21:26 Dose: 8.8 mg Valacyclovir HCl (Valtrex -) 1,000 mg PO BID [facility] Last Admin: 10/04/17 09:34 Dose: 1,000 mg - Objective Vital Signs: Vital Signs Temperature 97.7 F 10/04/17 05:57 Pulse Rate 76 10/04/17 05:57 Respiratory Rate 20 10/04/17 05:57 Blood Pressure 142/89 10/04/17 05:57 O2 Sat by Pulse Oximetry (%) 97 10/04/17 02:00 Constitutional: Yes: Well Nourished, No Distress, Calm HENT: Yes: Other (Ulcerated tongue) Cardiovascular: Yes: Regular Rate and Rhythm Respiratory: Yes: Regular Gastrointestinal: Yes: Normal Bowel Sounds, Soft Musculoskeletal: Yes: WNL Extremities: Yes: WNL Labs: CBC, BMP 10/04/17 06:15 10/04/17 06:15 Problem List - Problems (1) At risk for dehydration due to poor fluid intake Assessment/Plan: 2/2 to oral ulcer- biopsy in the past negative -Was supposed to see oral surgeon at [place], which he hasn't -GI and Swallow eval -Magic mouthwash -Cepacol lozenges Code(s): Z91.89 - [facility] PERSONAL RISK FACTORS, NOT ELSEWHERE CLASSIFIED (2) Myelodysplasia (myelodysplastic syndrome) Assessment/Plan: -Sees Dr Turcios outpatient -Hematology consult Code(s): D46.9 - MYELODYSPLASTIC SYNDROME, UNSPECIFIED (3) Oral ulcer Assessment/Plan: -Oral vasculitis -Cepacol lozenges -Magic mouthwash -D/C to follow up with Oral surgeon -Needs oral biopsy with immunoflourosence Code(s): K12.1 - OTHER FORMS OF STOMATITIS (4) Constipation Assessment/Plan: -Senna HS -Miralax -Seen by GI -Given Enema this admission Code(s): K59.00 - CONSTIPATION, UNSPECIFIED (5) Hypokalemia Assessment/Plan: resolved Code(s): E87.6 - HYPOKALEMIA Assessment/Plan See problem list DVT prophylaxisCalled daughter, who was unable to talk over the phone. Informed that he has been discharged. Callback number provided to the daughter.
--- NOTE | 2017-10-04 13:09 | PN ---
Progress Note (short form) - Note Progress Note: Pt seen and examined. tolerated solid food today. O/E Constitutional: Calm tongue with erosions ,better now reportedly Abdomen:Yes: Normoactive Bowel Sounds , Soft, Other (nontender) ext.--no c/c/e Last Vital Signs Temp Pulse Resp BP Pulse Ox 97.6 F 71 20 127/70 98 10/04/17 10:00 10/04/17 10:00 10/04/17 10:00 10/04/17 10:00 10/04/17 10:00 CBC, BMP 10/04/17 06:15 10/04/17 06:15 Current Medications Generic Name Dose Route Start Last Admin Trade Name Freq PRN Reason Stop Dose Admin Acetaminophen 650 mg 10/01/17 16:54 Tylenol - PO Q4H PRN PAIN LEVEL 6-10 Aspirin 81 mg 10/01/17 17:00 10/04/17 09:35 Ecotrin - PO 81 mg DAILY MANNY Administration Benzocaine/Menthol 1 each 10/01/17 19:09 10/01/17 21:54 Cepacol Lozenge - MM 1 each DAILY PRN Administration SORE THROAT Heparin Sodium (Porcine) 5,000 unit 10/01/17 22:00 10/04/17 09:35 Heparin - SQ 5,000 unit BID MANNY Administration Potassium Chloride/Sodium Chloride 20 meq in 1,000 mls @ 75 mls/hr 10/02/17 07 :30 10/04/17 09:34 Ns+20 Meq Kcl - IV Not Given ASDIR MANNY Levothyroxine Sodium 50 mcg 10/01/17 17:15 10/04/17 06:10 Synthroid - PO 50 mcg DAILY@0700 MANNY Administration Lidocaine/Aluminum/Magnesium/Simeth 5 ml 10/01/17 18:00 10/04/17 11:30 Magic Mouthwash *Sjr Formula* - MM 5 ml Q6HPO MANNY Administration Methylprednisolone Sodium Succinate 60 mg 10/02/17 08:45 10/04/17 09:35 Solu-Medrol - IVPUSH 60 mg Q8H MANNY Administration Pantoprazole Sodium 40 mg 10/03/17 10:00 10/04/17 09:34 Protonix - PO 40 mg DAILY MANNY Administration Polyethylene Glycol 17 gm 10/04/17 10:00 10/04/17 10:55 Miralax (For Daily Use) - PO Not Given DAILY MANNY Senna 8.8 mg 10/02/17 22:00 10/03/17 21:26 Senna Oral Solution - PO 8.8 mg HS MANNY Administration Valacyclovir HCl 1,000 mg 10/01/17 22:00 10/04/17 09:34 Valtrex - PO 1,000 mg BID MANNY Administration h/o MDS: stable, [place] [id number] b y ENT -non -specific inflammation--report in [place]. , now with recurrence-- responding to steroids--?Etiology ?pemphigus GI f/u appreciated for Oral surgeon as an OP w/u
--- NOTE | 2017-10-04 14:03 | DS ---
Physical Examination Vital Signs: Vital Signs Temperature 97.6 F 10/04/17 10:00 Pulse Rate 71 10/04/17 10:00 Respiratory Rate 20 10/04/17 10:00 Blood Pressure 127/70 10/04/17 10:00 O2 Sat by Pulse Oximetry (%) 98 10/04/17 10:00 Constitutional: Yes: Well Nourished, No Distress, Calm HENT: Yes: Other (Ulcerated tongue-improved) Cardiovascular: Yes: Regular Rate and Rhythm Respiratory: Yes: Regular Gastrointestinal: Yes: Normal Bowel Sounds, Soft Musculoskeletal: Yes: WNL Extremities: Yes: WNL Edema: No Peripheral Pulses WNL: Yes Neurological: Yes: Alert Psychiatric: Yes: Alert Labs: CBC, BMP 10/04/17 06:15 10/04/17 06:15 Discharge Summary Reason For Visit: DYSPHAGIA Current Active Problems Abdominal pain (Acute) Anemia (Acute) Aphthous stomatitis (Acute) Constipation (Acute) Hypokalemia (Acute) Pharyngitis (Acute) Hospital Course: The patient is an 89 year old male with a significant past medical history of hypothyroidism, myelodysplastic syndrome, diabetes, and anemia who presents to the emergency department for evaluation of dysphagia. The patient reports a 4 day history of dysphagia. As per family member, the patient reports attempting to take in fluids, but endorses spitting it up what he took in. The patient reports taking Ducolax last night and this morning secondary to a 5 day history of no bowel movement. Condition: Stable - Instructions Diet, Activity, Other Instructions: -Follow up with Oral surgery outpatient at [facility] -take Prednisone 60 mg 2 x day until you see oral surgery outpatient- 10 days supply sent to pharmacy -Follow up with PCP within 1 week. -Continue soft diet. Referrals: Titi Escamilla MD [Staff Physician] - Disposition: HOME - Home Medications Comprehensive Discharge Medication List: Ambulatory Orders Levothyroxine [Synthroid -] 50 mcg PO DAILY 03/04/17 Aspirin [Adult Aspirin Regimen] 81 mg PO DAILY 07/01/17 Mag Hydrox/Alh/Smc/Dpha/Lido [Magic Mouthwash *Sjr Formula* -] 5 ml MM Q6HPO # 200 ml 07/06/17 Cyanocobalamin (Vitamin B-12) [Vitamin B-12] 1,000 mcg SL DAILY 10/01/17 Acetaminophen [Tylenol .Regular Strength -] 650 mg PO Q4H PRN tablet 10/04/17 Pantoprazole Sodium [Protonix -] 40 mg PO DAILY #30 tablet.ec 10/04/17 Polyethylene Glycol 3350 [Miralax 119 gm Btl -] 17 gm PO TID #3 bottle 10/04/17 Prednisone [Deltasone] 60 mg PO BID #60 tablet 10/04/17 Valacyclovir HCl [Valtrex -] 1,000 mg PO BID tablet 10/04/17
--- NOTE | 2017-10-04 15:41 | PN ---
GI Progress Note Subjective: GI NOte: Tolerating solid diet. No further bloating sensed. NO BM today. I did discussed the situation with his daughter last night and advised that Miralax be continued once a day. Dr. Sandoval's consult is appreciated. Oral ulcers are disappearing with the steroids. Agree that tongue biopsy should be repeated for immunofluoresence. She will be seeking an oral surgeon who accepts his insurance - Objective Vital Signs: Vital Signs Temperature 97.6 F 10/04/17 10:00 Pulse Rate 71 10/04/17 10:00 Respiratory Rate 20 10/04/17 10:00 Blood Pressure 127/70 10/04/17 10:00 O2 Sat by Pulse Oximetry (%) 98 10/04/17 10:00 Laboratory Tests 10/03/17 10/03/17 10/03/17 07:00 07:00 07:00 LD Total 497 H D LDL 1 Fraction LDL 2 Fraction LDL 3 Fraction LDL 4 Fraction LDL 5 Fraction Tumor Marker AFP 1.7 Hep B DNA copies/mL Pending Hep B DNA (Units/mL) Pending 10/04/17 06:15 LD Total Pending LDL 1 Fraction Pending LDL 2 Fraction Pending LDL 3 Fraction Pending LDL 4 Fraction Pending LDL 5 Fraction Pending Tumor Marker AFP Hep B DNA copies/mL Hep B DNA (Units/mL) Constitutional: No Distress HENT: Yes: Other (oral ulcers vanishing) ...Auscultate: Yes: Normoactive Bowel Sounds ...Palpate: Yes: Soft, Other (nontender) Labs: CBC, BMP 10/04/17 06:15 10/04/17 06:15 Problem List - Problems (1) Constipation Assessment/Plan: Fecal impaction resolved. Continue Miralax at home. NO GI objections to discharge. Code(s): K59.00 - CONSTIPATION, UNSPECIFIED (2) Hepatitis B Assessment/Plan: Await Hepatitis B DNA by PCR Code(s): B19.10 - UNSPECIFIED VIRAL HEPATITIS B WITHOUT HEPATIC COMA (3) Pharyngitis Code(s): J02.9 - ACUTE PHARYNGITIS, UNSPECIFIED (4) Anemia Code(s): D64.9 - ANEMIA, UNSPECIFIED Qualifiers: Bone marrow failure anemia type: unspecified bone marrow failure (5) Myelodysplasia (myelodysplastic syndrome) Code(s): D46.9 - MYELODYSPLASTIC SYNDROME, UNSPECIFIED (6) Oral ulcer Code(s): K12.1 - OTHER FORMS OF STOMATITIS
[2017-10-04 18:06] VITALS: BP 136/77; PULSE 74; TEMP 98
== END 2017-10-04 18:49 | disposition home or self-care (01) ==
LOC: JER 13:44 → JERBED 16:33 → INTOOBSV 16:33 → J7W 19:06
PROVIDERS: ADMIT Family Medicine; ATTEND Family Medicine
PROC: 3E0333Z Introduction of Anti-inflammatory into Peripheral Vein, Percutaneous Approach (ICD-10-PCS; principal; 2017-10-01)
PROC: 3E0337Z Introduction of Electrolytic and Water Balance Substance into Peripheral Vein, Percutaneous Approach (ICD-10-PCS; 2017-10-01)
PROC: 3E013GC Introduction of Other Therapeutic Substance into Subcutaneous Tissue, Percutaneous Approach (ICD-10-PCS; 2017-10-01)
DX: K12.0 Recurrent oral aphthae (principal); K12.1 Other forms of stomatitis; K59.00 Constipation, unspecified; R13.10 Dysphagia, unspecified; B19.10 Unspecified viral hepatitis B without hepatic coma; J02.9 Acute pharyngitis, unspecified; D64.9 Anemia, unspecified; D46.9 Myelodysplastic syndrome, unspecified; E11.9 Type 2 diabetes mellitus without complications; E03.9 Hypothyroidism, unspecified; N40.0 Benign prostatic hyperplasia without lower urinary tract symptoms; E87.6 Hypokalemia; G62.9 Polyneuropathy, unspecified; Z79.82 Long term (current) use of aspirin; Z91.89 Other specified personal risk factors, not elsewhere classified
CPT/HCPCS: 36415; 71045-TC-FY; 74177-TC; 80048; 80053; 82105; 82550; 83010; 83615; 83625; 83690; 83735; 84100; 84443; 84484; 85025; 85044; 86140; 87517; 93005; 93010; 96361; 96372; 96374; 97116-GP; 97161-GP; 99285-25; G0378; J1644; J7030